=== PATIENT | female | born 1985 | race Caucasian/White ===

== ENCOUNTER 2022-10-13 08:31 | Emergency (ER) | payer MEDICAID, SELFPAY ==
[2022-10-13 08:32] VITALS: BP 133/82; PULSE 73; RESP 14; TEMP 36.3; O2SAT 100; BMI 36.3
--- NOTE | 2022-10-13 09:08 | EX.ED.DYSGE1 ---
HPI History of Present Illness Chief Complaint: General Illness Informant: patient Narrative Narrative: Presents to ED by private vehicle awaken with dizziness and nausea with room spinning. States yesterday started her menstrual cramps with heavy bleeding. This is the normal timeframe however heavier than normal. Also while in the ED states she had feelings of loose stools. She did report taking a liver cleanse medication last evening. This was the first time. No recent antibiotics. No fevers. No headaches. No history of vertigo in the past. Denies any recent sinus congestion any tinnitus. Eyes any allergies to medications. Prior similar symptoms: No PFSH PFSH Medical History no medical history Home Medications cephalexin 500 mg capsule 500 mg PO Q12 #14 CAPSULES 10/13/22 [Rx Last Taken Unknown] metoclopramide HCl 10 mg tablet (Reglan) 10 mg PO Q8H PRN PRN dizziness or vertigo #20 tabs 10/13/22 [Rx Last Taken Unknown] Allergy/AdvReac Type Severity Reaction Status Date / Time No Known Allergies Allergy Verified 10/13/22 08:35 Social History Smoking Status: Unknown if ever smoked ROS ROS ED Constitutional Constitutional ED: Denies chills, fever(s) or sweats Eyes Eyes: Denies change in vision ENT ENT ED: Denies dysphagia or sore throat Cardiovascular Cardiovascular: Denies chest pain, leg edema, palpitations or racing heartbeat Respiratory/Chest Respiratory/Chest: Denies cough, dyspnea or dyspnea on exertion Gastrointestinal Gastrointestinal: Denies abdominal pain, diarrhea, nausea or vomiting Genitourinary Genitourinary ED: Reports other Details: Menorrhagia ; Denies dysuria, hematuria or urinary frequency Musculoskeletal Musculoskeletal: Denies back pain, extremity pain or neck pain Integumentary Denies rash or wounds Neurologic Neurologic: Reports other Details: Vertigo ; Denies headache(s), paresthesias or weakness EXAM Physical Exam Const Vital Signs: 10/13/22 08:32 10/13/22 08:44 10/13/22 10:33 Temperature 97.4 F L Temperature Source Temporal Pulse Rate 73 65 Respiratory Rate 14 Respiratory Effort Normal Blood Pressure 133/82 H 120/72 Blood Pressure Mean 99 88 Pulse Ox 100 97 Oxygen Delivery Method Room Air Room Air 10/13/22 11:05 Temperature Temperature Source Pulse Rate Respiratory Rate Respiratory Effort Blood Pressure 120/72 Blood Pressure Mean Pulse Ox Oxygen Delivery Method Positive well nourished and well developed General Appearance ED: well developed and NAD HEENT Reports TM's clear and moist mucous membranes normocephalic and atraumatic Tympanic Membrane ED: Yes TM's clear Eyes PERRL, EOMs intact bilaterally and conjunctivae normal Eyes Narrative: Horizontal nystagmus bilaterally with extreme deviation right or left. General Eye ED: Yes normal appearance of both eyes Neck no lymphadenopathy and supple General: Negative for tenderness Chest Wall Chest: Negative for tenderness Resp normal respiratory effort and normal air movement Effort and Inspection: symmetric chest movement; Negative for respiratory distress Cardio regular rate, regular rhythm and no murmurs Peripheral Pulses: pulses 2+ throughout GI normal to inspection, nondistended, normoactive bowel sounds and non-tender GI Narrative: Negative Anderson's McBurney's tenderness. Palpation: Negative for guarding or rebound tenderness present Back/Spine no CVA tenderness and no thoracic nor lumbar tenderness Extremity normal to inspection General Extremety ED: Negative for edema or tenderness General Extremity: Negative for edema Neuro oriented x3, CN's II-XII intact bilaterally and no sensory deficits noted Neuro Narrative: NIH of 0. Sensorium / Orientation: awake and alert Skin no rashes or lesions noted and no wounds MDM MDM MDM Narrative Medical decision making narrative: Patient horizontal nystagmus NIH of 0 no other focal deficits. Presenting with menorrhagia suprapubic tenderness noted reported urine frequency. Differential peripheral vertigo, less likely central vertigo with horizontal nystagmus and no focal deficits. Menorrhagia with urine frequency. Discussed rule out ectopic versus UTI. Labs were obtained white count 7.4 hemoglobin 14. Electrolytes are all normal. Urine did signs of infection. test was. Reevaluation symptoms are improved she is ambulating with no return of symptoms. She started on Keflex for antibiotics. She is given prescription of Reglan also help with symptoms. Return precaution discussed. Otherwise outpatient follow-up. All questions were answered. Lab Data Attestation: I reviewed the patient's lab results. Labs: Laboratory Results - last 24 hr 10/13/22 10/13/22 10/13/22 08:15 08:15 10:15 WBC 7.4 RBC 5.05 Hgb 14.5 Hct 44.0 MCV 87.1 MCH 28.7 MCHC 33.0 RDW Std Deviation 39.5 RDW Coeff of Kota 12.3 Plt Count 252 MPV 11.2 Immature Gran % (Auto) 0.300 Neut % (Auto) 58.7 Lymph % (Auto) 27.8 [place] % (Auto) 9.8 Eos % (Auto) 2.7 Baso % (Auto) 0.7 Absolute Neuts (auto) 4.3 Absolute Lymphs (auto) 2.05 Nucleated RBC % 0 Sodium 141 Potassium 3.6 Chloride 108 H Carbon Dioxide 26.0 Anion Gap 7 BUN 11 Creatinine 0.80 Estim Creat Clear Calc 93.63 Est GFR (MDRD) Af Amer 103 Est GFR (MDRD) Non-Af 85 BUN/Creatinine Ratio 13.7 Glucose 129 H Calcium 8.9 Urine Color Red Urine Clarity Sl. Cloudy Urine pH 7.0 Ur Specific Berkley 1.005 Urine Protein 100 H Urine Glucose (UA) Normal Urine Ketones Negative Urine Occult Blood 250 H Urine Nitrite Negative Urine Bilirubin Negative Urine Urobilinogen Normal Ur Leukocyte Esterase 100 H Urine RBC 25-50 SEEN Urine WBC 10-25 SEEN Ur Squamous Epith Cells 0-5 SEEN Urine Bacteria 1+ Urine Mucus 0 SEEN Urine Test Negative Discharge Plan Triage Chief Complaint: General Illness ED Provider: Gagandeep Trinidad Dx/Rx/DC Orders Clinical Impression: UTI (urinary tract infection), Vertigo, Menorrhagia Instructions: UTIs Understanding, Vertigo Medicine Tx, ED Vertigo, Unspecified Prescriptions: New cephalexin [cephalexin] 500 mg capsule 500 mg PO Q12 Qty: 14 0RF metoclopramide HCl [Reglan] 10 mg tablet 10 mg PO Q8H PRN PRN (Reason: dizziness or vertigo) Qty: 20 0RF Primary Care Provider: Care Physician,No Primary Referrals: Grace Singh [Non-Staff] - 1-2 Weeks Care Physician,No Primary [Primary Care Provider] - Activity Restrictions/Additional Instructions: Urine with infection. Take antibiotic as prescribed. Reglan as needed for dizziness. Monitor symptoms. Follow-up as an outpatient. Return if worsening symptoms. Disposition Disposition: Home, Self Care Discharge Date/Time: 10/13/22 11:05
[2022-10-13] MEDS: Metoclopramide 10 MG/2 ML Vial 5 MG IV (09:18)
[2022-10-13 09:26] LABS: Absolute Lymphocyte Count 2.05 X10^3/uL (0.83-4.51); Absolute Neutrophil Count 4.3 X10^3/uL (2.0-7.7); Basophil# 0.05 X10^3/uL; Basophil% 0.7 % (0-1); Eosinophils% 2.7 % (0-5); Hemoglobin 14.5 g/dL (12.0-15.0); Lymphocyte # 2.05 X10^3/ul (0.83-4.51); Lymphocyte % 27.8 % (19-41); Mean Corpuscular Hgb 28.7 pg (27.0-32.0); Mean Corpuscular Volume 87.1 fL (81-99); Mean Platelet Vol. 11.2 fl (6.2-12.0); Monocyte# 0.72 X10^3/uL; Monocyte% 9.8 % (0-10); NRBC Flagged by Analyzer 0 % (0-5); Neutrophil # 4.33 X10^3/uL (2.7-7.7); Neutrophil % 58.7 % (47-70); Platelet Count 252 K/mm3 (150-450); RBC Distribution Width CV 12.3 % (11.6-14.6); RBC Distribution Width SD 39.5 fl (35.1-43.9); Red Blood Count 5.05 M/mm3 (4.2-5.4); White Blood Count 7.4 K/mm3 (4.4-11.0)
[2022-10-13 09:40] LABS: Anion Gap 7 (5-15); BUN 11 mg/dL (7-18); BUN/Creat Ratio 13.7 RATIO (10-20); Calcium,Total 8.9 mg/dL (8.5-10.1); Chloride 108 mmol/L (98-107); EST Glomerular Filtration Rate 85 mL/min (>60); Est Glom Filt Rate - Afr Amer 103 mL/min (>60); Estimated Creatinine Clearance 93.63 ml/min; Glucose 129 mg/dL (74-106); Potassium 3.6 mmol/L (3.5-5.1); Sodium Level 141 mmol/L (136-145)
[2022-10-13 10:24] LABS: Mucous, Urine 0 SEEN /hpf (<or=2+)
[2022-10-13 10:30] LABS: Color, Urine Red (Yellow); Glucose, Dipstick Normal (Normal); Ketone-Dipstick Negative (Negative); Leukocyte Esterase-Dipstick 100 /ul (Negative); Nitrite-Dipstick Negative (Negative); Occult Blood-Urine 250 /ul (Negative); Protein-Dipstick 100 mg/dl (Negative); Specific Gravity, Urine 1.005 (1.002-1.030); Urine Bilirubin Dipstick Negative (Negative); Urine Clarity Sl. Cloudy (Clear); Urine Urobilinogen Normal (Normal)
[2022-10-13 10:33] VITALS: BP 120/72; PULSE 65; O2SAT 97
[2022-10-13 10:35] LABS: Red Blood Cells-Urine 25-50 SEEN /hpf (0-5); White Blood Cells 10-25 SEEN /hpf (0-5)
[2022-10-13 10:36] LABS: Bacteria 1+ /hpf (None Seen); Internal QC Validated? YES +Cl - CLEAR BKGD; Pregnancy, Urine Negative Negative; Squamous Epithelial Cells - UA 0-5 SEEN /hpf (5-10)
[2022-10-13] MEDS: Cephalexin 250 MG Capsule 500 MG PO (11:00)
--- NOTE | 2022-10-13 11:00 | CM.ED ---
SW Note Referral Source: Case Find Referral Reason: No Primary Care Physician (PCP) SW reviewed chart and noted that patient has no PCP. SW provided patient with list of [facility] and [facility] Physician List for reference. SW also provided patient with handout ?Where to go When?. No other issues or concerns voiced at this time. SW remains available for any additional needs. Plan: Provided patient with PCP information Ronna JAIMES
[2022-10-13 11:05] VITALS: BP 120/72
== END 2022-10-13 11:05 | disposition home or self-care (01) ==
PROVIDERS: Emergency Provider Emergency Medicine; Visit Provider Emergency Medicine
DX: N39.0 Urinary tract infection, site not specified (principal); N92.0 Excessive and frequent menstruation with regular cycle; R42 Dizziness and giddiness
CPT/HCPCS: 80048; 81001; 81025; 85025; 87086; 87088; 96361; 96374; 99285; J7040

== ENCOUNTER → 2022-10-24 | Outpatient (CLI) | payer MEDICAID, SELFPAY ==
[2022-10-25 22:07] LABS: Chlamydia By Nucleic Acid AMP Negative (Negative)
[2022-10-25 22:27] LABS: Gonococcus By Nucleic Acid AMP Negative (Negative)
[2022-10-29 22:17] LABS: HPV APTIMA, High Risk Negative (Negative)
== END | disposition home or self-care (01) ==
LOC: LAB 10:56
PROVIDERS: Referring Provider Nurse Practitioner Women's Health; Visit Provider Nurse Practitioner Women's Health
DX: N92.1 Excessive and frequent menstruation with irregular cycle (principal); N89.8 Other specified noninflammatory disorders of vagina; Z12.4 Encounter for screening for malignant neoplasm of cervix
CPT/HCPCS: 87070; 87205; 87491; 87591; 87624; 88175; G0145

== ENCOUNTER → 2022-10-25 | Outpatient (CLI) | payer MEDICAID, SELFPAY ==
--- NOTE | 2022-10-25 16:15 | US_ITS ---
STUDY: ULTRASOUND OF THE FEMALE PELVIS - COMPLETE REASON FOR EXAM: Female, 37 years old. Bleeding LMP: 10/17/2022. TECHNIQUE: Transabdominal and Transvaginal TECHNICAL QUALITY: Adequate. COMPARISON: None. FINDINGS: The uterus is anteverted and is in a midline position. The uterus measures 9.2 cm x 6.8 cm x 4.8 cm. There is a Nabothian cyst of the cervix. The endometrium measures 10 mm in thickness, and is . There is no demonstrated endometrial mass. There is no demonstrated myometrial mass. I.U.D. - The patient does not have an I.U.D. The right ovary is visualized. The right ovary measures 2.9 cm x 1.3 cm x 1.7 cm. There is no right ovarian cyst or ovarian mass. There is no visualized right adnexal mass or complex lesion. There is normal arterial and normal venous vascularity. The left ovary is visualized. The left ovary measures 3.5 cm x 3.2 cm x 2.4 cm. There is a 2.1 cm x 1.8 cm x 1.8 cm left ovarian cyst. There is no visualized left adnexal mass or complex lesion. There is normal arterial and normal venous vascularity. There is no fluid in the cul-de-sac. The pre void volume of the bladder was 172 ml. US/Pelvic (Non ) IMPRESSION: 2.1 cm x 1.5 x 1.8 solid left ovarian cyst. Electronically Signed: Nelson Cruz MD at 15:31 EST ,
--- NOTE | 2022-10-25 16:15 | US_ITS ---
STUDY: ULTRASOUND OF THE FEMALE PELVIS - COMPLETE REASON FOR EXAM: Female, 37 years old. Bleeding LMP: 10/17/2022. TECHNIQUE: Transabdominal and Transvaginal TECHNICAL QUALITY: Adequate. COMPARISON: None. FINDINGS: The uterus is anteverted and is in a midline position. The uterus measures 9.2 cm x 6.8 cm x 4.8 cm. There is a Nabothian cyst of the cervix. The endometrium measures 10 mm in thickness, and is . There is no demonstrated endometrial mass. There is no demonstrated myometrial mass. I.U.D. - The patient does not have an I.U.D. The right ovary is visualized. The right ovary measures 2.9 cm x 1.3 cm x 1.7 cm. There is no right ovarian cyst or ovarian mass. There is no visualized right adnexal mass or complex lesion. There is normal arterial and normal venous vascularity. The left ovary is visualized. The left ovary measures 3.5 cm x 3.2 cm x 2.4 cm. There is a 2.1 cm x 1.8 cm x 1.8 cm left ovarian cyst. There is no visualized left adnexal mass or complex lesion. There is normal arterial and normal venous vascularity. There is no fluid in the cul-de-sac. The pre void volume of the bladder was 172 ml. US/Transvaginal Non- IMPRESSION: 2.1 cm x 1.5 x 1.8 solid left ovarian cyst. Electronically Signed: Nelson Cruz MD at 15:31 EST ,
== END | disposition home or self-care (01) ==
LOC: US 16:13
PROVIDERS: Referring Provider Nurse Practitioner Women's Health; Visit Provider Nurse Practitioner Women's Health
DX: N92.1 Excessive and frequent menstruation with irregular cycle (principal)
CPT/HCPCS: 76830; 76856

== ENCOUNTER → 2022-10-27 | Outpatient (CLI) | payer MEDICAID, SELFPAY ==
[2022-10-27 12:37] LABS: Vitamin D,25 Hydroxy 22.5 ng/mL
[2022-10-27 12:45] LABS: Hemoglobin A1c 6.1 % (3.8-5.6)
[2022-10-27 12:50] LABS: AST(SGOT) 22 U/L (15-37); Alanine Aminotransfer ALT/SGPT 49 U/L (13-56); Albumin, Serum 3.6 g/dL (3.2-5.0); Alkaline Phosphatase 70 U/L (45-117); Bilirubin, Direct 0.14 mg/dL (0.00-0.30); Cholesterol 149 mg/dL (200); Globulin 3.2 g/dL (2.2-4.2); High Density Lipoprotein 36 mg/dL; Protein, Total 6.8 g/dL (6.4-8.2); Thyroid Stim Hormone (TSH) 1.47 uIU/mL (0.358-3.74); Triglycerides 152 mg/dL; Very Low Density Lipoprotein 30 mg/dL (5-40)
[2022-10-31 19:27] LABS: Lamotrigine (Lamictal) Level < 1.0 ug/mL (2.0-20.0)
== END | disposition home or self-care (01) ==
LOC: BIMLAB 11:07
PROVIDERS: PCP Internal Medicine; Referring Provider Internal Medicine; Visit Provider Internal Medicine
DX: N92.1 Excessive and frequent menstruation with irregular cycle (principal); F32.1 Major depressive disorder, single episode, moderate; R73.09 Other abnormal glucose; K76.0 Fatty (change of) liver, not elsewhere classified
CPT/HCPCS: 36415; 80061; 80076; 82306; 82542; 83036; 84443

== ENCOUNTER → 2022-12-20 | Outpatient (CLI) | payer MEDICAID, SELFPAY | END | disposition home or self-care (01) | LOC: LABSPEC 16:41 | PROVIDERS: PCP Internal Medicine; Referring Provider Nurse Practitioner Women's Health; Visit Provider Nurse Practitioner Women's Health | DX: N89.8 Other specified noninflammatory disorders of vagina (principal) | CPT/HCPCS: 87070; 87205 ==

== ENCOUNTER → 2023-03-09 | Outpatient (CLI) | payer MEDICAID, SELFPAY ==
[2023-03-09 14:23] LABS: Bacteria 0 SEEN /hpf (None Seen); Mucous, Urine 0 SEEN /hpf (<or=2+); Red Blood Cells-Urine 0 SEEN /hpf (0-5); Squamous Epithelial Cells - UA 0 SEEN /hpf (5-10); White Blood Cells 0 SEEN /hpf (0-5)
[2023-03-09 15:45] LABS: Absolute Lymphocyte Count 2.08 X10^3/uL (0.83-4.51); Absolute Neutrophil Count 5.8 X10^3/uL (2.0-7.7); Basophil# 0.03 X10^3/uL; Basophil% 0.3 % (0-1); Eosinophil# 0.29 X10^3/uL; Eosinophils% 3.3 % (0-5); Hematocrit 42.7 % (37-47); Hemoglobin 13.9 g/dL (12.0-15.0); Lymphocyte # 2.08 X10^3/ul (0.83-4.51); Lymphocyte % 23.5 % (19-41); Mean Corp Hgb Conc 32.6 g/dL (32-36); Mean Corpuscular Hgb 28.4 pg (27.0-32.0); Mean Corpuscular Volume 87.3 fL (81-99); Mean Platelet Vol. 10.8 fl (6.2-12.0); Monocyte# 0.63 X10^3/uL; Monocyte% 7.1 % (0-10); NRBC Flagged by Analyzer 0 % (0-5); Neutrophil # 5.79 X10^3/uL (2.7-7.7); Neutrophil % 65.3 % (47-70); Platelet Count 220 K/mm3 (150-450); RBC Distribution Width CV 12.6 % (11.6-14.6); Red Blood Count 4.89 M/mm3 (4.2-5.4); White Blood Count 8.9 K/mm3 (4.4-11.0)
[2023-03-09 16:21] LABS: ALB/GLOB Ratio 1.1 RATIO (0.9-2.4); AST(SGOT) 26 U/L (15-37); Alanine Aminotransfer ALT/SGPT 54 U/L (13-56); Albumin, Serum 3.7 g/dL (3.2-5.0); Alkaline Phosphatase 74 U/L (45-117); Anion Gap 4 (5-15); BUN 10 mg/dL (7-18); BUN/Creat Ratio 12.5 RATIO (10-20); Calcium,Total 8.8 mg/dL (8.5-10.1); Chloride 106 mmol/L (98-107); EST Glomerular Filtration Rate 86 mL/min (>60); Est Glom Filt Rate - Afr Amer 104 mL/min (>60); Globulin 3.4 g/dL (2.2-4.2); Glucose 142 mg/dL (74-106); Lipase 32 U/L (13-75); Potassium 4.1 mmol/L (3.5-5.1); Protein, Total 7.1 g/dL (6.4-8.2); Sodium Level 138 mmol/L (136-145)
[2023-03-09 16:55] LABS: Color, Urine Yellow (Yellow); Glucose, Dipstick Normal (Normal); Ketone-Dipstick Negative (Negative); Leukocyte Esterase-Dipstick Negative /ul (Negative); Nitrite-Dipstick Negative (Negative); Occult Blood-Urine Negative /ul (Negative); Protein-Dipstick Negative (Negative); Urine Bilirubin Dipstick Negative (Negative); Urine Clarity Clear (Clear); Urine Urobilinogen Normal (Normal); Urine pH 6.5 (5.0 - 8.0)
[2023-03-09 17:02] LABS: Internal QC Validated? YES +Cl - CLEAR BKGD; Pregnancy, Urine Negative Negative
== END | disposition home or self-care (01) ==
LOC: BIMLAB 14:15
PROVIDERS: PCP Internal Medicine; Referring Provider Internal Medicine; Visit Provider Internal Medicine
DX: K62.5 Hemorrhage of anus and rectum (principal); K59.09 Other constipation; R82.90 Unspecified abnormal findings in urine
CPT/HCPCS: 36415; 80053; 81001; 81025; 83690; 85025

== ENCOUNTER 2023-03-12 15:51 | Emergency (ER) | payer MEDICAID, SELFPAY ==
[2023-03-12 15:51] VITALS: BP 138/93; PULSE 84; RESP 16; TEMP 36.6; O2SAT 98; BMI 43.6
--- NOTE | 2023-03-12 16:13 | EDS_ITS ---
<Statement entered by Quentin Jorgensen MD - 03/12/23 21:05> Pt seen & evaluated w/ROSEANNE. I personally interviewed & exam the pt. I was involved in all aspects of pt's orders, interpretation of results & treatment Attending note was completed in the MDM portion of the chart. HPI <PUNEET Bolton - Last Filed: 03/12/23 17:15> History of Present Illness Chief Complaint: GI Bleed Narrative Narrative: Patient is a 37-year-old female history of obesity, anxiety who presents to the emergency department with 5 days of intermittent bleeding in her stool. Patient did see her PCP she did have some laboratory test completed on 03/09/2023, these were mostly unremarkable. Patient states that she did have some red beats earlier today. She is been trying to change her diet. Patient had a full bowel movement, she states that the entire bowel movement was red. She denies any clots. She denies any severe abdominal pain. Patient that she has intermittent cramping from time to time. Denies any dizziness, chest pain, shortness of breath. PFS <PUNEET Bolton - Last Filed: 03/12/23 17:15> [facility] Medical History (Updated 03/12/23 @ 17:15 by PUNEET Bolton) Anxiety Depression Fatty liver Hx: UTI (urinary tract infection) Liver disease Home Medications fluoxetine 20 mg capsule 20 mg PO DAILY #30 caps 10/27/22 [Rx Last Taken Unknown] inulin 2 gram chewable tablet (Fiber Gummies) g PO 10/27/22 [History Last Taken Unknown] docusate sodium 100 mg capsule 100 mg PO BID PRN constipation #30 caps 12/08/22 [Rx Last Taken Unknown] lamotrigine 25 mg tablet 100 mg PO DAILY 12/08/22 [History Last Taken Unknown] psyllium husk 3.4 gram/5.4 gram oral powder (Metamucil) 1 tbsp PO DAILY #660 grams 12/08/22 [Rx Last Taken Unknown] clotrimazole-betamethasone 1 %-0.05 % topical cream 1 applic topical BID 2 weeks #45 grams 12/20/22 [Rx Last Taken Unknown] omeprazole 20 mg capsule,delayed release 20 mg PO DAILY #30 caps 03/09/23 [Rx Last Taken Unknown] Allergy/AdvReac Type Severity Reaction Status Date / Time No Known Allergies Allergy Verified 03/12/23 15:53 Family History Father Anxiety Depression Grandfather Cancer unknown Surgical History No pertinent past surgical history Social History adopted: No household members: significant other and children housing: house number of children: 1 current occupational status: employed current occupation: [employer] Smoking Status: Never smoker Electronic Cigarette Use: not used alcohol intake: current alcohol intake frequency: holidays/special occasions only substance use type: does not use seatbelt use: sometimes do you feel safe at home: Yes additional social history: 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 Positive blood in stool : Negative for any urinary frequency, dysuria, retention, blood in urine Muscle skeletal: Negative for any muscle joint pain, stiffness, myalgias, arthralgias, neck pain, back pain Neurological: Negative for any headache, syncope, numbness or tingling, dizziness Skin: Negative for any rashes, lumps, itching, abrasions, lacerations Psychiatric: Negative for any depression, anxiety, stress, suicidal ideation, homicidal ideation Hematologic: Negative for any easy bruising, excessive bruising, easy bleeding Allergies: Negative for any eczema, hives, rash EXAM <PUNEET Bolton - Last Filed: 03/12/23 17:15> Physical Exam Narrative Exam Narrative: Vital signs reviewed. HEET: Head normocephalic atraumatic, TMs clear bilaterally. Posterior pharynx is clear, moist mucous membranes. Nares clear bilaterally. Neck: Supple with no lymphadenopathy or tenderness. No signs of meningismus, negative jolt sign. Cardiac: Regular rate and rhythm no murmurs gallops or rubs, equal peripheral pulses bilaterally. Respiratory: Lungs clear to auscultation bilaterally. No chest tenderness. Abdomen: Soft, nontender, nondistended. No abdominal bruit or pulsatile masses. No hepatosplenomegaly Extremities: No peripheral edema, no signs of gross trauma or deformity. Active full range of motion of all extremities. Neuro: Cranial nerves II through XII intact, no focal neurological deficits. Skin: Clean dry and intact with no rash, purpura, petechiae, vesicles or pustules. Backs/flank: No CVA tenderness, no midline spinal tenderness, no deformity. Psych: Normal mood and affect. No SI, HI or acute psychosis. Rectal: Rectal exam was completed with female nurse Yoana. There is no external hemorrhoids. There is no evidence of bleeding or erythema. There is minimal to no stool in the rectal vault. No evidence of dark tarry stool, bleeding. No masses felt. Const Vital Signs: 03/12/23 15:51 03/12/23 17:15 Temperature 98 F Temperature Source Temporal Pulse Rate 84 67 Respiratory Rate 16 15 Blood Pressure 138/93 H 129/74 H Blood Pressure Mean 108 Pulse Ox 98 98 Oxygen Delivery Method Room Air Positive well nourished, well developed and obese General Appearance ED: well developed Nutritional Appearance: obese <Dr. Quentin Jorgensen MD - Last Filed: 03/12/23 20:57> Physical Exam Const Vital Signs: 03/12/23 15:51 03/12/23 17:15 Temperature 98 F Temperature Source Temporal Pulse Rate 84 67 Respiratory Rate 16 15 Blood Pressure 138/93 H 129/74 H Blood Pressure Mean 108 Pulse Ox 98 98 Oxygen Delivery Method Room Air MDM <PUNEET Bolton - Last Filed: 03/12/23 17:15> [facility] Lab Data Labs: Laboratory Results - last 24 hr 03/12/23 16:22 WBC 8.2 RBC 4.63 Hgb 13.3 Hct 40.6 MCV 87.7 MCH 28.7 MCHC 32.8 RDW Std Deviation 40.4 RDW Coeff of Kota 12.7 Plt Count 220 MPV 10.7 Immature Gran % (Auto) 0.600 Neut % (Auto) 60.8 Lymph % (Auto) 25.3 [place]cdonald % (Auto) 9.6 Eos % (Auto) 3.3 Baso % (Auto) 0.4 Absolute Neuts (auto) 5.0 Absolute Lymphs (auto) 2.07 Nucleated RBC % 0 Sodium 138 Potassium 3.7 Chloride 107 Carbon Dioxide 26.0 Anion Gap 5 BUN 14 Creatinine 0.93 Estim Creat Clear Calc 80.54 Est GFR (MDRD) Af Amer 87 Est GFR (MDRD) Non-Af 72 BUN/Creatinine Ratio 15.1 Glucose 136 H Calcium 8.7 Total Bilirubin 0.50 AST 24 ALT 48 Alkaline Phosphatase 71 Total Protein 6.7 Albumin 3.5 Globulin 3.2 Albumin/Globulin Ratio 1.1 Lipase 44 Treatment and Re-Evaluation :: Patient appears generally well, patient appears nontoxic, vital signs are stable. Patient presents to the emergency department concern of blood in his stool. Physical examination was grossly unremarkable. Patient had no significant tenderness to her abdomen. Patient is currently trying to get a colonoscopy set up. Rectal exam was unremarkable. Patient will see some basic laboratory values as well as a fecal occult stool. Patient is stable. Patient appears generally well on reassessment. Patient did receive some basic laboratory values, CBC was grossly unremarkable, patient's hemoglobin is stable at 13.3. Patient's chemistries were unremarkable, no elevation in liver enzymes . Patient rectal exam was unremarkable, the fecal occult stool was positive for microscopic blood. I spoke with the patient at length, I do believe the patient is pursuing the right avenue with seeing a GI specialist and getting a colonoscopy. She will follow-up outpatient. At this time, she is stable for discharge. She was given strict return precautions to return for worsening bleeding, hemorrhage, dizziness. She is happy with the plan of care, all questions answered. Patient stable for discharge. A CT scan was considered however patient has no pain to her abdomen, no pain in the left lower or right lower abdomen, no pain to her epigastric area. This is not appropriate at this time. <Dr. Quentin Jorgensen MD - Last Filed: 03/12/23 20:57> [facility] Narrative Medical decision making narrative: I have personally performed a face to face assessment of the patient and have reviewed the ROSEANNE Note. I performed a substantive portion of the visit including all aspects of the following. My roa findings include: History is remarkable for blood in her stool. She is not on an anticoagulant. She is on omeprazole. She has recently eaten beets. She denies black or sticky stool. She has not had any Kaopectate or Pepto-Bismol in the last 3 days. She denies orthostatic symptoms. She denies cardiac or respiratory symptoms. Exam is unremarkable. Blood pressure slightly elevated. BMI is 43.6. HEENT exam is unremarkable. Lungs are clear auscultation. Heart is regular. Abdomen is soft nontender. There is no CVA tenderness noted. Rectal exam was not repeated. Medical Decision Making Will send stool for Hemoccult CBC to assess 8. BMP to assess BUN to creatinine ratio as well as electrolytes. Because she reported intolerance to greasy and fried foods and had sausage this morning for breakfast that made her pain worse hepatic enzymes were added as well as lipase. All of her laboratory results are unremarkable. The only abnormality was a slight elevation in glucose of 136. Other additions or changes: None Lab Data Labs: Laboratory Results - last 24 hr 03/12/23 16:22 WBC 8.2 RBC 4.63 Hgb 13.3 Hct 40.6 MCV 87.7 MCH 28.7 MCHC 32.8 RDW Std Deviation 40.4 RDW Coeff of Kota 12.7 Plt Count 220 MPV 10.7 Immature Gran % (Auto) 0.600 Neut % (Auto) 60.8 Lymph % (Auto) 25.3 Mcdonald % (Auto) 9.6 Eos % (Auto) 3.3 Baso % (Auto) 0.4 Absolute Neuts (auto) 5.0 Absolute Lymphs (auto) 2.07 Nucleated RBC % 0 Sodium 138 Potassium 3.7 Chloride 107 Carbon Dioxide 26.0 Anion Gap 5 BUN 14 Creatinine 0.93 Estim Creat Clear Calc 80.54 Est GFR (MDRD) Af Amer 87 Est GFR (MDRD) Non-Af 72 BUN/Creatinine Ratio 15.1 Glucose 136 H Calcium 8.7 Total Bilirubin 0.50 AST 24 ALT 48 Alkaline Phosphatase 71 Total Protein 6.7 Albumin 3.5 Globulin 3.2 Albumin/Globulin Ratio 1.1 Lipase 44 Discharge Plan Triage Chief Complaint: GI Bleed ED Midlevel Provider: Suraj Gallegos ED Provider: Quentin Jorgensen Dx/Rx/DC Orders Clinical Impression: Rectal bleed, Constipation Prescriptions: No Action lamotrigine 25 mg tablet 100 mg PO DAILY Fiber Gummies 2 gram tablet,chewable PO fluoxetine 20 mg capsule 20 mg PO DAILY Qty: 30 2RF clotrimazole-betamethasone 1-0.05 % cream 1 applic topical BID 14 Days Qty: 45 1RF Metamucil 3.4 gram/5.4 gram powder 1 tbsp PO DAILY Qty: 660 0RF Rx Instructions: mix into at least 8 oz of water or juice before administering docusate sodium 100 mg capsule 100 mg PO BID PRN (Reason: constipation) Qty: 30 0RF omeprazole 20 mg capsule,delayed release(DR/EC) 20 mg PO DAILY Qty: 30 0RF Primary Care Provider: Bina Dorsey Referrals: Bina Dorsey MD [Primary Care Provider] - Hiren Beyer DO [Med Staff - Active Staff] - Activity Restrictions/Additional Instructions: Please take MiraLAX 3 times a day, follow-up with a GI specialist to have a colonoscopy. Disposition Disposition: Home, Self Care
[2023-03-12 16:32] LABS: Absolute Lymphocyte Count 2.07 X10^3/uL (0.83-4.51); Basophil# 0.03 X10^3/uL; Basophil% 0.4 % (0-1); Eosinophil# 0.27 X10^3/uL; Eosinophils% 3.3 % (0-5); Hematocrit 40.6 % (37-47); Hemoglobin 13.3 g/dL (12.0-15.0); Lymphocyte # 2.07 X10^3/ul (0.83-4.51); Lymphocyte % 25.3 % (19-41); Mean Corp Hgb Conc 32.8 g/dL (32-36); Mean Corpuscular Hgb 28.7 pg (27.0-32.0); Mean Corpuscular Volume 87.7 fL (81-99); Mean Platelet Vol. 10.7 fl (6.2-12.0); Monocyte# 0.79 X10^3/uL; Monocyte% 9.6 % (0-10); NRBC Flagged by Analyzer 0 % (0-5); Neutrophil # 4.98 X10^3/uL (2.7-7.7); Neutrophil % 60.8 % (47-70); Platelet Count 220 K/mm3 (150-450); RBC Distribution Width CV 12.7 % (11.6-14.6); RBC Distribution Width SD 40.4 fl (35.1-43.9); Red Blood Count 4.63 M/mm3 (4.2-5.4); White Blood Count 8.2 K/mm3 (4.4-11.0)
[2023-03-12 16:50] LABS: ALB/GLOB Ratio 1.1 RATIO (0.9-2.4); AST(SGOT) 24 U/L (15-37); Alanine Aminotransfer ALT/SGPT 48 U/L (13-56); Albumin, Serum 3.5 g/dL (3.2-5.0); Alkaline Phosphatase 71 U/L (45-117); Anion Gap 5 (5-15); BUN 14 mg/dL (7-18); BUN/Creat Ratio 15.1 RATIO (10-20); Calcium,Total 8.7 mg/dL (8.5-10.1); Chloride 107 mmol/L (98-107); Creatinine, Serum 0.93 mg/dL (0.55-1.02); EST Glomerular Filtration Rate 72 mL/min (>60); Est Glom Filt Rate - Afr Amer 87 mL/min (>60); Estimated Creatinine Clearance 80.54 ml/min; Globulin 3.2 g/dL (2.2-4.2); Glucose 136 mg/dL (74-106); Lipase 44 U/L (13-75); Potassium 3.7 mmol/L (3.5-5.1); Protein, Total 6.7 g/dL (6.4-8.2); Sodium Level 138 mmol/L (136-145)
[2023-03-12 17:15] VITALS: BP 129/74; PULSE 67; RESP 15; O2SAT 98
== END 2023-03-12 17:22 | disposition home or self-care (01) ==
PROVIDERS: Nurse Practitioner; Emergency Provider Emergency Medicine; PCP Internal Medicine; Visit Provider Emergency Medicine
DX: K62.5 Hemorrhage of anus and rectum (principal); Z68.41 Body mass index [BMI] 40.0-44.9, adult; K59.00 Constipation, unspecified; K76.9 Liver disease, unspecified; E66.9 Obesity, unspecified
CPT/HCPCS: 80053; 82274; 83690; 85025; 99283; A4216

== ENCOUNTER 2023-03-13 23:04 | Emergency (ER) | payer MEDICAID, SELFPAY ==
[2023-03-13 23:04] VITALS: BP 138/90; PULSE 135; RESP 18; TEMP 37; O2SAT 99; BMI 43.2
--- NOTE | 2023-03-14 00:08 | CT_ITS ---
EXAM: CT ANGIOGRAPHY ABDOMEN AND PELVIS WITHOUT AND WITH INTRAVENOUS CONTRAST CLINICAL INDICATION: GI bleed TECHNIQUE: Helically acquired angiography images were obtained of the abdomen and pelvis without and with intravenous contrast. This CT exam was performed using one or more of the following dose reduction techniques: automated exposure control, adjustment of the mA and/or kV according to patient size, and/or use of iterative reconstruction technique. MIP reconstructed images were created and reviewed. CONTRAST: 100 cc of Isovue-370 IV. RADIATION DOSE: CTDIvol = 29.90 mGy, DLP = 1371.10 mGy-cm COMPARISON: No relevant prior studies available. FINDINGS: VASCULATURE: AORTA: No acute findings. Normal caliber abdominal aorta. No dissection. CELIAC TRUNK AND MESENTERIC ARTERIES: No acute findings. No occlusion or significant stenosis. No dissection. RENAL ARTERIES: No acute findings. No occlusion or significant stenosis. No dissection. ILIAC ARTERIES: No acute findings. No occlusion or significant stenosis. No dissection. LOWER THORAX: Unremarkable. Lung bases are clear. No cardiomegaly. No significant pericardial effusion. ABDOMEN: LIVER: There is diffuse low-attenuation of the liver. GALLBLADDER AND BILE DUCTS: Unremarkable. No calcified gallstones. No gallbladder distention or wall edema. No intra- or extrahepatic biliary ductal dilation. PANCREAS: Unremarkable. No focal cystic or solid mass. SPLEEN: Unremarkable. Normal size without focal cystic or solid mass. ADRENALS: Unremarkable. No nodules. KIDNEYS AND URETERS: Unremarkable. Normal renal size and position. No hydronephrosis. STOMACH AND BOWEL: Unremarkable. No stomach or bowel distention. No focal inflammatory change. PELVIS: APPENDIX: No evidence of acute appendicitis. BLADDER: Unremarkable. REPRODUCTIVE: Unremarkable as visualized. No mass. ABDOMEN and PELVIS: INTRAPERITONEAL SPACE: Unremarkable. No ascites or other fluid collection. No free air. BONES/JOINTS: Unremarkable. No suspicious lytic or blastic abnormality. SOFT TISSUES: Unremarkable. No discrete abdominal or pelvic wall hernia. LYMPH NODES: Unremarkable. No enlarged lymph nodes. CT/CTA Abd/Pelvis W/WO Contrast IMPRESSION: 1. Fatty liver. 2. No GI bleeding identified. Electronically Signed: Jaspal Mcnamara MD at 1:44 EDT ,
[2023-03-14] MEDS: 0.9% Normal Saline 1,000 ML 999 ML IV (00:23)
[2023-03-14 00:33] LABS: Absolute Lymphocyte Count 2.25 X10^3/uL (0.83-4.51); Absolute Neutrophil Count 5.5 X10^3/uL (2.0-7.7); Basophil# 0.04 X10^3/uL; Basophil% 0.4 % (0-1); Eosinophil# 0.25 X10^3/uL; Eosinophils% 2.8 % (0-5); Hematocrit 41.8 % (37-47); Hemoglobin 13.7 g/dL (12.0-15.0); Lymphocyte # 2.25 X10^3/ul (0.83-4.51); Lymphocyte % 25.1 % (19-41); Mean Corp Hgb Conc 32.8 g/dL (32-36); Mean Corpuscular Hgb 28.8 pg (27.0-32.0); Mean Platelet Vol. 10.8 fl (6.2-12.0); Monocyte# 0.91 X10^3/uL; Monocyte% 10.1 % (0-10); NRBC Flagged by Analyzer 0 % (0-5); Neutrophil # 5.48 X10^3/uL (2.7-7.7); Platelet Count 207 K/mm3 (150-450); RBC Distribution Width CV 12.6 % (11.6-14.6); RBC Distribution Width SD 40.6 fl (35.1-43.9); Red Blood Count 4.75 M/mm3 (4.2-5.4)
[2023-03-14 00:51] LABS: Internal QC Validated? YES +Cl - CLEAR BKGD; Pregnancy, Serum, hCG Quali. NEGATIVE Negative
[2023-03-14 00:54] LABS: AST(SGOT) 23 U/L (15-37); Alanine Aminotransfer ALT/SGPT 46 U/L (13-56); Albumin, Serum 3.4 g/dL (3.2-5.0); Alkaline Phosphatase 66 U/L (45-117); Anion Gap 5 (5-15); BUN 13 mg/dL (7-18); BUN/Creat Ratio 14.8 RATIO (10-20); Bilirubin, Direct 0.14 mg/dL (0.00-0.30); Calcium,Total 9.1 mg/dL (8.5-10.1); Chloride 107 mmol/L (98-107); Creatinine, Serum 0.88 mg/dL (0.55-1.02); EST Glomerular Filtration Rate 77 mL/min (>60); Est Glom Filt Rate - Afr Amer 93 mL/min (>60); Estimated Creatinine Clearance 85.12 ml/min; Globulin 3.3 g/dL (2.2-4.2); Glucose 118 mg/dL (74-106); Lipase 37 U/L (13-75); Potassium 3.8 mmol/L (3.5-5.1); Protein, Total 6.7 g/dL (6.4-8.2); Sodium Level 138 mmol/L (136-145)
[2023-03-14 01:01] LABS: Lactic Acid 0.7 mmol/L (0.4-1.9)
--- NOTE | 2023-03-14 01:15 | ED.RN ---
PT REFUSED IV PAIN MEDICATION. PT REPORTS MY PAIN IS NOT THAT BAD I DO NOT WANT ANYTHING FOR PAIN RIGHT NOW.
--- NOTE | 2023-03-14 02:02 | EDS_ITS ---
HPI History of Present Illness Chief Complaint: Abd Pain Informant: patient Narrative Narrative: Patient is a 37-year-old female with past medical history of anxiety and depression as well as constipation. She was seen in ER yesterday secondary to abdominal pain and reported blood with bowel movement. At that time labs revealed no clinically significant findings other than microscopic blood within the stool sample. Patient states she had a bowel movement today and there was blood in the toilet and this concerned her as she also has some upper abdominal pain and therefore comes in for evaluation [facility] Medical History (Updated 03/14/23 @ 02:[address] Chinedu Gusman, DO) Anxiety Depression Fatty liver Hx: UTI (urinary tract infection) Liver disease Home Medications fluoxetine 20 mg capsule 20 mg PO DAILY #30 caps 10/27/22 [Rx Last Taken Unknown] inulin 2 gram chewable tablet (Fiber Gummies) g PO 10/27/22 [History Last Taken Unknown] docusate sodium 100 mg capsule 100 mg PO BID PRN constipation #30 caps 12/08/22 [Rx Last Taken Unknown] lamotrigine 25 mg tablet 100 mg PO DAILY 12/08/22 [History Last Taken Unknown] psyllium husk 3.4 gram/5.4 gram oral powder (Metamucil) 1 tbsp PO DAILY #660 grams 12/08/22 [Rx Last Taken Unknown] clotrimazole-betamethasone 1 %-0.05 % topical cream 1 applic topical BID 2 weeks #45 grams 12/20/22 [Rx Last Taken Unknown] omeprazole 20 mg capsule,delayed release 20 mg PO DAILY #30 caps 03/09/23 [Rx Last Taken Unknown] Allergy/AdvReac Type Severity Reaction Status Date / Time No Known Allergies Allergy Verified 03/13/23 23:06 Family History Father Anxiety Depression Grandfather Cancer unknown Surgical History No pertinent past surgical history Social History adopted: No household members: significant other and children housing: house number of children: 1 current occupational status: employed 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 [employer] Smoking Status: Never smoker Electronic Cigarette Use: not used alcohol intake: current alcohol intake frequency: holidays/special occasions only substance use type: does not use seatbelt use: sometimes do you feel safe at home: Yes additional social history: Boyfriend- Ricki- Horse shoeing ROS ROS ED Constitutional Constitutional ED: Denies chills or fever(s) ENT ENT ED: Denies sore throat Cardiovascular Cardiovascular: Denies chest pain Respiratory/Chest Respiratory/Chest: Denies cough or dyspnea Gastrointestinal Gastrointestinal: Reports abdominal pain and other Details: Bright red blood with bowel movement ; Denies diarrhea, nausea or vomiting Genitourinary Genitourinary ED: Denies dysuria or hematuria Musculoskeletal Musculoskeletal: Denies myalgias Integumentary Denies rash Neurologic Neurologic: Denies headache(s) or weakness Hematologic/Lymphatic Hematologic/Lymphatic: Denies easy bleeding or easy bruising EXAM Physical Exam Const Vital Signs: 03/13/23 23:04 03/14/23 02:15 Temperature 98.6 F 100 F H Temperature Source Temporal Pulse Rate 135 H 58 L Respiratory Rate 18 17 Blood Pressure 138/90 H 117/77 Blood Pressure Mean 106 Pulse Ox 99 Oxygen Delivery Method Room Air Positive well nourished, well developed and obese General Appearance ED: well developed; Negative for pallor Nutritional Appearance: obese HEENT Reports moist mucous membranes Eyes PERRL and EOMs intact bilaterally General Eye ED: Negative for pale conjunctiva Neck supple Resp normal respiratory effort and clear to auscultation bilaterally Cardio regular rate and regular rhythm Rate: other Other Details: Radial pulses are plus 2 out of 4 bilaterally are equal and symmetric GI non-distended GI Narrative: Abdomen is soft and nondistended with normal active bowel sounds. There is mild pain with palpation in the midepigastric region without voluntary guarding or rigidity. No pulsatile mass or fluid wave Auscultation: normoactive bowel sounds Palpation: soft Back/Spine no CVA tenderness Extremity normal to inspection Neuro oriented x3 and CN's II-XII intact bilaterally Sensorium / Orientation: alert Psych mental status grossly normal Skin no rashes or lesions noted and skin turgor normal Skin Narrative: Capillary refill is less than 3 seconds General Skin Exam: Negative for jaundice or pallor MDM MDM MDM Narrative Medical decision making narrative: Patient presented to the ER with a soft nonsurgical abdomen. However she was seen yesterday for the same complaint and the like it was slightly worse today so elected to begin with basic lab work and a CT scan. Differential diagnosis is for ruptured internal versus external hemorrhoid versus anal fissure versus diverticular bleed versus infection such as colitis or diverticulitis. Lab work revealed no clinically significant findings. Patient's BUN is not elevated. As she reported bright red blood per rectum I did elect to perform a CTA to check for possible cause of the bleed. CT revealed no obvious signs of acute bleeding or infectious or obstructive pathology. She had no further bouts of blood while in the ER. Therefore at this time I do not feel there is need for further work- up as she is not anemic there is no signs of active bleeding or an obstructive or infective process and vitals are stable and therefore patient is otherwise safe for discharge and can she can follow-up with GI on an outpatient basis to discuss colonoscopy for further evaluation History & Record Review Discussion w/independent historian: Patient Lab Data Attestation: I reviewed the patient's lab results. Labs: Laboratory Results - last 24 hr 03/14/23 00:23 WBC 9.0 RBC 4.75 Hgb 13.7 Hct 41.8 MCV 88.0 MCH 28.8 MCHC 32.8 RDW Std Deviation 40.6 RDW Coeff of [place] 12.6 Plt Count 207 MPV 10.8 Immature Gran % (Auto) 0.600 Neut % (Auto) 61.0 Lymph % (Auto) 25.1 [place] % (Auto) 10.1 H Eos % (Auto) 2.8 Baso % (Auto) 0.4 Absolute Neuts (auto) 5.5 Absolute Lymphs (auto) 2.25 Nucleated RBC % 0 Sodium 138 Potassium 3.8 Chloride 107 Carbon Dioxide 26.0 Anion Gap 5 BUN 13 Creatinine 0.88 Estim Creat Clear Calc 85.12 Est GFR (MDRD) Af Amer 93 Est GFR (MDRD) Non-Af 77 BUN/Creatinine Ratio 14.8 Glucose 118 H Lactic Acid 0.7 Calcium 9.1 Total Bilirubin 0.40 Direct Bilirubin 0.14 AST 23 ALT 46 Alkaline Phosphatase 66 Total Protein 6.7 Albumin 3.4 Globulin 3.3 Lipase 37 Serum , Qual NEGATIVE Radiography Diagnostic Testing: Clinical Impression(s) from Imaging Studies Abdomen/Pelvis CTA 03/14/23 00:08 IMPRESSION: 1. Fatty liver. 2. No GI bleeding identified. Electronically Signed: Jaspal Mcnamara MD at 1:44 EDT , Discharge Plan Triage Chief Complaint: Abd Pain ED Provider: Chinedu Gusman Dx/Rx/DC Orders Clinical Impression: Rectal bleed, Constipation Instructions: GI Bleeding Causes and Tests, ED Constipation (Adult) Prescriptions: No Action lamotrigine 25 mg tablet 100 mg PO DAILY Fiber Gummies 2 gram tablet,chewable PO fluoxetine 20 mg capsule 20 mg PO DAILY Qty: 30 2RF clotrimazole-betamethasone 1-0.05 % cream 1 applic topical BID 14 Days Qty: 45 1RF Metamucil 3.4 gram/5.4 gram powder 1 tbsp PO DAILY Qty: 660 0RF Rx Instructions: mix into at least 8 oz of water or juice before administering docusate sodium 100 mg capsule 100 mg PO BID PRN (Reason: constipation) Qty: 30 0RF omeprazole 20 mg capsule,delayed release(DR/EC) 20 mg PO DAILY Qty: 30 0RF Primary Care Provider: Bina Dorsey Referrals: Bina Dorsey MD [Primary Care Provider] - Activity Restrictions/Additional Instructions: Your blood work showed no clinically significant findings and your CAT scan showed no obvious cause of your intermittent bleeding. Therefore follow-up with GI as previously directed and return to the ER should you have any further concerns Disposition Disposition: Home, Self Care Discharge Date/Time: 03/14/23 02:19
[2023-03-14 02:15] VITALS: BP 117/77; PULSE 58; RESP 17; TEMP 37.7
== END 2023-03-14 02:19 | disposition home or self-care (01) ==
PROVIDERS: Emergency Provider Emergency Medicine; PCP Internal Medicine; Visit Provider Emergency Medicine
DX: K62.5 Hemorrhage of anus and rectum (principal); Z68.41 Body mass index [BMI] 40.0-44.9, adult; K59.00 Constipation, unspecified; E66.9 Obesity, unspecified
CPT/HCPCS: 74174; 80048; 80076; 83605; 83690; 84703; 85025; 96360; 96361; 99283; J7030; Q9967; A4216

== ENCOUNTER 2023-04-12 10:10 | Emergency (ER) | payer MEDICAID, SELFPAY ==
[2023-04-12 10:10] VITALS: BP 147/93; PULSE 70; RESP 16; TEMP 36.4; O2SAT 99; BMI 50.1
--- NOTE | 2023-04-12 10:39 | US_ITS ---
STUDY: ABDOMINAL ULTRASOUND - RIGHT UPPER QUADRANT REASON FOR VISIT: Female, 37 years old . The right upper quadrant pain. TECHNIQUE: Ultrasound evaluation of the right upper quadrant was performed with real-time and static nicole-scale imaging. TECHNICAL QUALITY: Limited. Examination limited due to obesity. COMPARISON: None. FINDINGS: Liver: The liver is enlarged and measures 22.6 cm. There is increased echogenicity consistent with fatty infiltration. The bile ducts are within normal limits. There is hepatic color flow. The direction of portal flow is hepatopetal. There is no demonstrated mass lesion. Gallbladder: Normal distended gallbladder. The gallbladder wall measures 1.8 mm. There is a negative sonographic Anderson''s sign. There is no pericholecystic fluid. There are no gallstones. Common Bile Duct (C.B.D.): The common bile duct measures 4.3 mm. Pancreas: Normal size of the head, body and tail of the pancreas. There is normal echogenicity of the pancreas. There is no demonstrated pancreatic mass or cyst. Right Kidney: Normal size of the right kidney. The right kidney measures 11.9 cm x 6.2 cm x 4.3 cm. Normal renal cortex. The right cortex measures 1.1 cm. There is no demonstrated renal mass or cyst. There is no right hydronephrosis. US/Gallbladder IMPRESSION: Hepatomegaly and fatty infiltration of the liver. Electronically Signed: Nelson Cruz MD at 12:37 EDT ,
[2023-04-12 10:53] LABS: Mucous, Urine 0 SEEN /hpf (<or=2+)
[2023-04-12 10:55] LABS: Color, Urine Yellow (Yellow); Glucose, Dipstick Normal (Normal); Ketone-Dipstick Negative (Negative); Leukocyte Esterase-Dipstick 500 /ul (Negative); Nitrite-Dipstick Negative (Negative); Occult Blood-Urine 10 /ul (Negative); Protein-Dipstick Negative (Negative); Urine Bilirubin Dipstick Negative (Negative); Urine Clarity Sl. Cloudy (Clear); Urine Urobilinogen Normal (Normal)
[2023-04-12 10:57] LABS: Absolute Lymphocyte Count 2.32 X10^3/uL (0.83-4.51); Absolute Neutrophil Count 4.8 X10^3/uL (2.0-7.7); Basophil# 0.04 X10^3/uL; Basophil% 0.5 % (0-1); Eosinophil# 0.27 X10^3/uL; Eosinophils% 3.3 % (0-5); Hematocrit 44.6 % (37-47); Hemoglobin 14.8 g/dL (12.0-15.0); Lymphocyte # 2.32 X10^3/ul (0.83-4.51); Lymphocyte % 28.3 % (19-41); Mean Corp Hgb Conc 33.2 g/dL (32-36); Mean Corpuscular Hgb 28.8 pg (27.0-32.0); Mean Corpuscular Volume 86.8 fL (81-99); Mean Platelet Vol. 11.1 fl (6.2-12.0); Monocyte# 0.74 X10^3/uL; NRBC Flagged by Analyzer 0 % (0-5); Neutrophil % 58.5 % (47-70); Platelet Count 239 K/mm3 (150-450); RBC Distribution Width CV 12.5 % (11.6-14.6); RBC Distribution Width SD 39.8 fl (35.1-43.9); Red Blood Count 5.14 M/mm3 (4.2-5.4); White Blood Count 8.2 K/mm3 (4.4-11.0)
[2023-04-12] MEDS: Ondansetron 4 MG/2 ML Vial IV (10:58)
[2023-04-12] MEDS: 0.9% Normal Saline 1,000 ML 1000 ML IV (10:58)
[2023-04-12] MEDS: Morphine 4 MG/ML Syringe IV (10:58)
[2023-04-12 11:02] LABS: Bacteria 1+ /hpf (None Seen); Red Blood Cells-Urine 0-5 SEEN /hpf (0-5); Squamous Epithelial Cells - UA 0-5 SEEN /hpf (5-10); White Blood Cells 25-50 SEEN /hpf (0-5)
[2023-04-12 11:09] LABS: ALB/GLOB Ratio 1.1 RATIO (0.9-2.4); AST(SGOT) 25 U/L (15-37); Alanine Aminotransfer ALT/SGPT 61 U/L (13-56); Albumin, Serum 3.8 g/dL (3.2-5.0); Alkaline Phosphatase 77 U/L (45-117); Anion Gap 3 (5-15); BUN 11 mg/dL (7-18); BUN/Creat Ratio 13.1 RATIO (10-20); Calcium,Total 8.9 mg/dL (8.5-10.1); Chloride 105 mmol/L (98-107); Creatinine, Serum 0.84 mg/dL (0.55-1.02); EST Glomerular Filtration Rate 81 mL/min (>60); Est Glom Filt Rate - Afr Amer 98 mL/min (>60); Estimated Creatinine Clearance 89.17 ml/min; Globulin 3.6 g/dL (2.2-4.2); Glucose 120 mg/dL (74-106); Lipase 37 U/L (13-75); Potassium 3.9 mmol/L (3.5-5.1); Protein, Total 7.4 g/dL (6.4-8.2); Sodium Level 137 mmol/L (136-145)
--- NOTE | 2023-04-12 11:13 | ED.VIS.GI ---
HPI HPI - GI History of Present Illness Chief Complaint: Abd Pain Informant: patient Abdominal Pain/Flank Pain Onset: Yesterday Context: Gradual Onset Timing: Continuous Quality: Cramping Location: RUQ Worsened by: - (Deep breathing) Relieved by: Nothing Nausea/Vomiting/Emesis GI Symptom: Positive for Nausea; Negative for Vomiting Diarrhea/Melena/Hematochezia GI Symptom: Negative for Diarrhea, Melena or Hematochezia Associated Symptoms Associated Symptoms: Negative for Dysuria, Frequency or Hematuria Narrative Narrative: Patient presents with abdominal pain that began yesterday. Patient states it can came on gradually. Patient states it has been constant. Patient describes the pain as cramping. Patient states the pain is mainly over the right upper quadrant. Patient states the pain radiates into her back. Patient admits to some nausea but denies any vomiting. Patient states her pain is worse with deep breathing. Patient states nothing makes it better. Patient admits to some loose stools. Patient denies any melena or hematochezia. Patient denies any urinary complaints. Patient states her last menstrual period was approximately 1 week ago. Patient states she has a history of fatty liver disease. [facility] Medical History Anxiety Depression Fatty liver Hx: UTI (urinary tract infection) Liver disease Home Medications fluoxetine 20 mg capsule 20 mg PO DAILY #30 caps 10/27/22 [Rx Last Taken Unknown] inulin 2 gram chewable tablet (Fiber Gummies) g PO 10/27/22 [History Last Taken Unknown] docusate sodium 100 mg capsule 100 mg PO BID PRN constipation #30 caps 12/08/22 [Rx Last Taken Unknown] lamotrigine 25 mg tablet 100 mg PO DAILY 12/08/22 [History Last Taken Unknown] psyllium husk 3.4 gram/5.4 gram oral powder (Metamucil) 1 tbsp PO DAILY #660 grams 12/08/22 [Rx Last Taken Unknown] clotrimazole-betamethasone 1 %-0.05 % topical cream 1 applic topical BID 2 weeks #45 grams 12/20/22 [Rx Last Taken Unknown] omeprazole 40 mg capsule,delayed release 40 mg PO QDAY #30 caps 03/28/23 [Rx Last Taken Unknown] hydrocodone-acetaminophen 5-325mg 5mg-325mg 1 tab PO Q6H PRN PRN Pain 3 days #10 TABLETS 04/12/23 [Rx Last Taken Unknown] sulfamethoxazole 800 mg-trimethoprim 160 mg tablet 1 tab PO BID #6 TABLETS 04/12/23 [Rx Last Taken Unknown] Allergy/AdvReac Type Severity Reaction Status Date / Time No Known Allergies Allergy Verified 04/12/23 10:12 Family History Father Anxiety Depression Grandfather Cancer unknown Surgical History No pertinent past surgical history Social History adopted: No household members: significant other and children housing: house number of children: 1 current occupational status: employed current occupation: [employer] Smoking Status: Never smoker Electronic Cigarette Use: not used alcohol intake: current alcohol intake frequency: holidays/special occasions only substance use type: does not use seatbelt use: sometimes do you feel safe at home: Yes additional social history: Boyfriend- Ricki- Horse shoeing ROS ROS ED Constitutional Constitutional ED: Denies chills or fever(s) Eyes Eyes: Denies blurry vision or change in vision ENT ENT ED: Denies rhinorrhea or sore throat Cardiovascular Cardiovascular: Denies chest pain or palpitations Respiratory/Chest Respiratory/Chest: Denies cough or dyspnea Gastrointestinal Gastrointestinal: Reports abdominal pain and nausea; Denies diarrhea or vomiting Genitourinary Genitourinary ED: Denies dysuria or hematuria Musculoskeletal Musculoskeletal: Reports back pain; Denies neck pain Integumentary Denies abscess or rash Neurologic Neurologic: Denies headache(s) or weakness Allergic/Immunologic Allergic/Immunologic ED: Denies mouth swelling or urticaria EXAM Physical Exam Const Vital Signs: 04/12/23 10:10 04/12/23 11:33 Temperature 97.6 F L Temperature Source Temporal Pulse Rate 70 78 Respiratory Rate 16 16 Blood Pressure 147/93 H 119/78 Blood Pressure Mean 111 91 Pulse Ox 99 100 Oxygen Delivery Method Room Air Positive well nourished, well developed and obese General Appearance ED: well developed and NAD Nutritional Appearance: obese HEENT Reports moist mucous membranes Neck supple and no JVD Resp normal respiratory effort and clear to auscultation bilaterally Cardio regular rate, regular rhythm and no murmurs GI normal to inspection, nondistended, normoactive bowel sounds Palpation: soft and tender RUQ and Anderson's sign; Negative for guarding or rebound tenderness present Extremity normal to inspection General Extremety ED: Negative for edema or tenderness General Extremity: Negative for edema Neuro oriented x3, CN's II-XII intact bilaterally and no sensory deficits noted Sensorium / Orientation: alert Motor Exam: strength 5/5 throughout Psych mental status grossly normal Skin no rashes or lesions noted MDM MDM MDM Narrative Medical decision making narrative: Differential diagnosis includes cholelithiasis, cholecystitis, gastritis, peptic ulcer disease, duodenal ulcer, pancreatitis, pyelonephritis, and urinary tract infection. CBC will be obtained to assess for leukocytosis and anemia. Comprehensive metabolic profile will be obtained to assess for hepatic function, renal function, and electrolyte abnormality. Urinalysis will be obtained to assess for urinary tract infection. Lipase will be obtained to assess for pancreatitis. Serum hCG will be obtained to assess for . Right upper quadrant ultrasound will be obtained to assess for cholelithiasis and cholecystitis. Lab Data Attestation: I reviewed the patient's lab results. Lab results narrative: CBC was reviewed and was within normal limits. Comprehensive metabolic profile was reviewed and was essentially within normal limits. Lipase was reviewed and was normal. Urinalysis was reviewed. Leukocyte esterase was 500 with 25-50 white blood cells. There is 1+ bacteria. Labs: Laboratory Results - last 24 hr 04/12/23 10:25 WBC 8.2 RBC 5.14 Hgb 14.8 Hct 44.6 MCV 86.8 MCH 28.8 MCHC 33.2 RDW Std Deviation 39.8 RDW Coeff of [place] 12.5 Plt Count 239 MPV 11.1 Immature Gran % (Auto) 0.400 Neut % (Auto) 58.5 Lymph % (Auto) 28.3 [place] % (Auto) 9.0 Eos % (Auto) 3.3 Baso % (Auto) 0.5 Absolute Neuts (auto) 4.8 Absolute Lymphs (auto) 2.32 Nucleated RBC % 0 Sodium 137 Potassium 3.9 Chloride 105 Carbon Dioxide 29.0 Anion Gap 3 L BUN 11 Creatinine 0.84 Estim Creat Clear Calc 89.17 Est GFR (MDRD) Af Amer 98 Est GFR (MDRD) Non-Af 81 BUN/Creatinine Ratio 13.1 Glucose 120 H Calcium 8.9 Total Bilirubin 0.80 AST 25 ALT 61 H Alkaline Phosphatase 77 Total Protein 7.4 Albumin 3.8 Globulin 3.6 Albumin/Globulin Ratio 1.1 Lipase 37 Serum , Qual NEGATIVE Urine Color Yellow Urine Clarity Sl. Cloudy Urine pH 7.0 Ur Specific [place] 1.010 Urine Protein Negative Urine Glucose (UA) Normal Urine Ketones Negative Urine Occult Blood 10 H Urine Nitrite Negative Urine Bilirubin Negative Urine Urobilinogen Normal Ur Leukocyte Esterase 500 H Urine RBC 0-5 SEEN Urine WBC 25-50 SEEN Ur Squamous Epith Cells 0-5 SEEN Urine Bacteria 1+ Urine Mucus 0 SEEN Radiography Diagnostic Testing: Clinical Impression(s) from Imaging Studies Gallbladder Ultrasound 04/12/23 10:39 IMPRESSION: Hepatomegaly and fatty infiltration of the liver. Electronically Signed: Nelson Cruz MD at 12:37 EDT , Right upper quadrant ultrasound was obtained. There is hepatomegaly and fatty infiltration of the liver. There are no gallstones noted. There is no gallbladder wall thickening. There is no ductal dilatation noted. There is no pericholecystic fluid. This was interpreted by the radiologist and was also independently reviewed by myself. Treatment and Re-Evaluation :: Patient was given IV fluids, morphine, and Zofran. Urine culture was obtained. Patient was feeling better on reevaluation. Patient was advised of her findings. Patient was given a prescription for Bactrim. Patient was also given a prescription for a short course of [place] to take as needed for pain. Patient was instructed to follow-up with her primary care physician in 5 to 7 days. Patient understood and was agreeable with the plan. All questions were answered. Discharge Plan Triage Chief Complaint: Abd Pain ED Provider: Adonis Bledsoe Dx/Rx/DC Orders Clinical Impression: Right upper quadrant abdominal pain, Fatty liver Instructions: ED Abdominal Pain Unkn Cause Fem Prescriptions: New hydrocodone-acetaminophen [hydrocodone-acetaminophen] 5-325 mg tablet 1 tab PO Q6H PRN PRN (Reason: Pain) 3 Days Qty: 10 0RF sulfamethoxazole-trimethoprim [sulfamethoxazole-trimethoprim] 800-160 mg tablet 1 tab PO BID Qty: 6 0RF No Action lamotrigine 25 mg tablet 100 mg PO DAILY Fiber Gummies 2 gram tablet,chewable PO fluoxetine 20 mg capsule 20 mg PO DAILY Qty: 30 2RF clotrimazole-betamethasone 1-0.05 % cream 1 applic topical BID 14 Days Qty: 45 1RF Metamucil 3.4 gram/5.4 gram powder 1 tbsp PO DAILY Qty: 660 0RF Rx Instructions: mix into at least 8 oz of water or juice before administering docusate sodium 100 mg capsule 100 mg PO BID PRN (Reason: constipation) Qty: 30 0RF omeprazole 40 mg capsule,delayed release(DR/EC) 40 mg PO QDAY Qty: 30 3RF Rx Instructions: swallow whole; do not crush, chew, dissolve, cut, break Primary Care Provider: Bina Dorsey Referrals: Bina Dorsey MD [Primary Care Provider] - 5-7 Days Disposition Disposition: Home, Self Care
[2023-04-12 11:17] LABS: Internal QC Validated? YES +Cl - CLEAR BKGD; Pregnancy, Serum, hCG Quali. NEGATIVE Negative
[2023-04-12 11:33] VITALS: BP 119/78; PULSE 78; RESP 16; O2SAT 100
[2023-04-12 13:23] VITALS: BP 128/70; PULSE 73; RESP 16
== END 2023-04-12 13:25 | disposition home or self-care (01) ==
PROVIDERS: Emergency Provider Emergency Medicine; PCP Internal Medicine; Visit Provider Emergency Medicine
DX: K76.0 Fatty (change of) liver, not elsewhere classified (principal); Z68.43 Body mass index [BMI] 50.0-59.9, adult; E66.9 Obesity, unspecified
CPT/HCPCS: 36415; 76705; 80053; 81001; 83690; 84703; 85025; 87086; 87088; 96361; 96374; 96375; 99282; J2405

== ENCOUNTER 2023-04-17 07:56 | Day surgery (SDC) | payer MEDICAID, SELFPAY ==
[2023-04-17] VITALS (7 sets, daily range): BP systolic 107–146; BP diastolic 63–88; PULSE 73–80; RESP 16; TEMP 36.1–36.6; O2SAT 96–100; BMI 43.0
[2023-04-17 08:22] LABS: Internal QC Validated? YES +Cl - CLEAR BKGD; Pregnancy, Urine Negative Negative
--- NOTE | 2023-04-17 08:22 | PCM.HP.BLA ---
History and Physical Date of Admission: 04/17/23 Date of Service: 03/27/23 MR#: [id number] Acct: [id number] Name: RAIZA CHIU Rep #: [id number] : 1985 Provider: Dr. Angélica Hall MD Age/Sex: 37/F Location: [facility] Status: Signed with Addenda ADDENDUM by Dr. Angélica Hall MD on 03/28/23 at 1533 Intake Chief Complaint: BLOOD IN STOOL Allergies No Known Allergies Allergy (Verified 03/27/23 13:13) Medications fluoxetine 20 mg capsule 20 mg PO DAILY #30 caps 10/27/22 [Rx Confirmed 03/27/23] inulin 2 gram chewable tablet (Fiber Gummies) g PO 10/27/22 [History Confirmed 03/27/23] docusate sodium 100 mg capsule 100 mg PO BID PRN constipation #30 caps 12/08/22 [Rx Confirmed 03/27/23] lamotrigine 25 mg tablet 100 mg PO DAILY 12/08/22 [History Confirmed 03/27/23] psyllium husk 3.4 gram/5.4 gram oral powder (Metamucil) 1 tbsp PO DAILY #660 grams 12/08/22 [Rx Confirmed 03/27/23] clotrimazole-betamethasone 1 %-0.05 % topical cream 1 applic topical BID 2 weeks #45 grams 12/20/22 [Rx Confirmed 03/27/23] omeprazole 40 mg capsule,delayed release 40 mg PO QDAY #30 caps 03/28/23 [Rx Confirmed 03/28/23] Assessment and Plan Assessment and Plan (1) BRBPR (bright red blood per rectum): Status: Acute (2) GERD (gastroesophageal reflux disease): Status: Acute (3) LUQ pain: Status: Acute (4) Epigastric abdominal pain: Status: Acute Medications: New omeprazole swallow whole; do not crush, chew, dissolve, cut, break 40 mg PO QDAY 30 caps 3RF Discontinued omeprazole Discontinued Reason: Order Changed 20 mg PO DAILY 30 caps 0RF 03/28/23 1533 <Electronically signed by Angélica Hall MD> Date Angélica Hall MD cc: Dr. Bina Dorsey MD ~* Signed Intake Vital Signs 03/12/2315:51 03/13/2323:04 03/27/2313:11 Height 5 ft 7 in 5 ft 7 in 5 ft 7 in Weight: 276 lb 2 oz BMI 43.2 BP 135/84 H Blood Pressure Location Rt brachial Position Sitting Respiration 17 Pulse 110 H Pulse Source Monitor Pulse Oximetry (%) 96 Oxygen Delivery Method room air Intake Visit Reasons: HEMORRHAGE OF RECTUM Chief Complaint: BLOOD IN STOOL Allergies No Known Allergies Allergy (Verified 03/27/23 13:13) Medications fluoxetine 20 mg capsule 20 mg PO DAILY #30 caps 10/27/22 [Rx Confirmed 03/27/23] inulin 2 gram chewable tablet (Fiber Gummies) g PO 10/27/22 [History Confirmed 03/27/23] docusate sodium 100 mg capsule 100 mg PO BID PRN constipation #30 caps 12/08/22 [Rx Confirmed 03/27/23] lamotrigine 25 mg tablet 100 mg PO DAILY 12/08/22 [History Confirmed 03/27/23] psyllium husk 3.4 gram/5.4 gram oral powder (Metamucil) 1 tbsp PO DAILY #660 grams 12/08/22 [Rx Confirmed 03/27/23] clotrimazole-betamethasone 1 %-0.05 % topical cream 1 applic topical BID 2 weeks #45 grams 12/20/22 [Rx Confirmed 03/27/23] omeprazole 40 mg capsule,delayed release 40 mg PO QDAY #30 caps 03/28/23 [Rx Confirmed 03/28/23] PFSH Medical History Anxiety Depression Fatty liver Hx: UTI (urinary tract infection) Liver disease Surgical History No pertinent past surgical history Family History Father Anxiety DepressionGrandfather Cancer unknown Social History adopted: No household members: significant other and children housing: house number of children: 1 current occupational status: employed 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 Patient states a week ago she had 3 days of bright red blood per rectum. Patient states she was constipated during that time was still having bowel movements daily but they were hard. Patient also was straining during that time. Patient has started to take aragon which is fruits and vegetable drink also drinks plenty of water. Patient is aware of a hemorrhoid as she can feel it. Patient never had previous EGD or colonoscopy. Patient also complains of left upper quadrant right upper quadrant epigastric pain and reflux daily. Patient does have some burning up her esophagus denies any nausea in the morning. Patient denies any family history of colon cancer. ROS General General: No weight change, appetite, fatigue, colon cancer, breast cancer or weakness HEENT HEENT: No difficulty swallowing, eye injury, eye surgery, swollen glands or hoarseness Endo Endocrine: No thyroid disease, diabetes mellitus, thyroid cancer, Hair loss, heat intolerance or cold intolerance Skin Skin: No rash or changing moles Breast Breast: No left breast lump, right breast lump, nipple discharge, breast pain, abnormal mammogram, abnormal US or breast enlargement Musc Musculoskeletal: No back problems, arthritis, rheumatoid arthritis, gout or joint pain Cardio Cardiovascular: No murmur, pacemaker, heart disease, atrial fibrillation, high blood pressure, heart attack, heart stent, palpitations, shortness of breat with exertion or chest pain Psych Psychiatric: Yes depression and anxiety; No hearing voices Resp Respiratory: No shortness of breath, No sleep apnea, No cough, No COPD, No asthma, No emphysema and No wheezing Gastro Gastrointestinal: Yes abdominal pain, Yes nausea or vomiting, Yes diarrhea, Yes constipation, Yes blood in stool, Yes acid reflux, No hemorrhoids, No ulcers, No gallbladder problem and Yes black,tarry stools Bubba Hematologic: No blood thinners, No blood disorders, No bleeding, No anemia and No blood clots Neuro Neurologic: No system reviewed and no additional complaints, except as documented, No as per HPI, No abnormal gait, No abnormal hearing, No abnormal movements, No abnormal speech, No behavioral changes, No burning sensations, No confusion, No convulsions, No disequilibrium, No dizziness, No localized weakness, No frequent falls, No headache(s), No lack of coordination, No loss of vision, No memory loss, No numbness, No other visual disturbances, No radicular pain, No restless legs, No sensory deficit, No syncope, No tingling, No tremor(s), No weakness and No other Exam Const General: cooperative, healthy appearing, comfortable and no acute distress [facility] Head: normocephalic and atraumatic Neck Neck: supple Resp Effort & Inspection: normal respiratory effort Cardio Rate: regular rate GI Inspection: non-distended Palpation: soft, no guarding, no hernias and tender in the epigastrum and in the LUQ; with no rebound tenderness Skin General: no rashes or lesions noted Neuro General: CN's II-XI intact bilaterally Extrem General: normal to inspection Psych Mental Status: mental status grossly normal Attitude: cooperative Assessment and Plan Assessment and Plan (1) BRBPR (bright red blood per rectum): Status: Acute (2) GERD (gastroesophageal reflux disease): Status: Acute (3) LUQ pain: Status: Acute (4) Epigastric abdominal pain: Status: Acute Medications: New omeprazole swallow whole; do not crush, chew, dissolve, cut, break 40 mg PO QDAY 30 caps 3RF Discontinued omeprazole Discontinued Reason: Order Changed 20 mg PO DAILY 30 caps 0RF Plan Did discuss the importance of high-fiber diet to help with constipation as long as she is taking adequate liquids?did give patient a sheet with high-fiber foods and as well. Also sending a prescription for omeprazole 40 mg p.o. daily. Patient currently states she is not on omeprazole?upon looking. Appears that PCP did send in omeprazole 20 mg?we will plan to still send in the 40 mg. I have discussed the above with the patient. I have offered the patient EGD and colonoscopy for evaluation. I have explained the risks/benefits of the procedure and described the procedure. I have discussed the risks with the patient, including but not limited to: infection, bleeding, perforation of the GI tract requiring emergency surgery, inability to complete the procedure, injury to any internal organs, complications of anesthesia, etc. - the patient understands and agrees to proceed. I have answered all the patient's questions to the patient's satisfaction and the patient has no further questions. The patient has been given instructions for the colon cleansing preparation. 1 day of clears, MiraLAX Dulcolax split prep. Angélica Hall M.D. Pager: [phone] [facility] [address] [place] [address], [facility], [address] [place] [address] Office: [phone] Coding Level of Care Code Off vis,new,level 4 Diagnoses BRBPR (bright red blood per rectum) K62.5 GERD (gastroesophageal reflux disease) K21.9 LUQ pain R10.12 Epigastric abdominal pain R10.13 03/28/23 1533 <Electronically signed by Angélica Hall MD> Date Angélica Hall MD
[2023-04-17] MEDS: Lactated Ringers 1,000 ML 15 ML IV (08:26)
--- NOTE | 2023-04-17 09:15 | IMM_PTH ---
PATIENT: RAIZA CHIU LOC: EN U#:[id number] AGE/SX: 37/F ROOM: RE04/17/[address]: Dr. Angélica Hall MD : 1985 BED: DIS: 04/17/2023 SPEC #: [id number] RECD: 04/17/23 13:51 STATUS: HIRA REMasoud #: [id number] DARLENE: 04/17/23 09:[address]: Angélica Hall DEPT: IMMUNOHISTOCHEMISTRY RECD BY: Tessa Grove ENTERED: 04/17/23 13:52 SP TYPE: IMMUNO OTHR DR: Dr. Bina Dorsey MD Tissues: Stomach, NOS Procedures: H Pylori (initial) PHYSICIAN & [place] [id number] SPECIMEN INFORMATION: Tissue Source: Antrum Clinical Info: LUQ abdominal pain, epigastric abdominal pain, GERD, bright red blood per rectum Specimen Number: [id number] CPT code: 46615 METHODOLOGY: Deparaffinized sections of prefer/formalin-fixed tissue or PAP/DQ stained slides are incubated with monoclonal/polyclonal antibodies/oligonucleotide probes. Localization is made via biotin free immunoperoxidase method. Appropriate controls are performed and reacted as expected. Results on target cell population are indicated in the following table: RESULTS: ANTIBODY / CLONE RESULT H Pylori (polyclonal) negative These tests were developed and their performance characteristics determined by [facility]. They may not have been cleared or approved by the U.S. Food and Drug Administration. The FDA has determined that such clearance or approval is not necessary. The above immunohistochemical/dualISH markers are ordered and reviewed by the Pathologist. INTERPRETATION: Antrum, biopsy: Negative for Helicobacter pylori organisms. AM:cathy 04/18/2023
--- NOTE | 2023-04-17 09:15 | EGD_PTH ---
PATIENT: RAIZA CHIU LOC: EN U#:[id number] AGE/SX: 37/F ROOM: RE04/17/[address]: Dr. Angélica Hall MD : 1985 BED: DIS: 04/17/2023 SPEC #: [id number] RECD: 04/17/23 12:27 STATUS: HIRA GENEVIEVE #: [id number] DARLENE: 04/17/23 09:[address]: Angélica Hall DEPT: SURGICAL PATHOLOGY RECD BY: Karla Fisher ENTERED: 04/17/23 13:30 SP TYPE: EGD BIOPSY OT DR: Dr. Bina Dorsey MD Tissues: Gastric mucous membrane Procedures: Surgery Specimen Level IV HEADER OPERATION: Colonoscopy, EGD and biopsy PRE-OP DIAGNOSIS: LUQ abdominal pain, epigastric abdominal pain, GERD, bright red blood per rectum TISSUE SUBMITTED: Antrum biopsy, H. pylori and path MICROSCOPIC DIAGNOSIS Gastric antrum, biopsy: Mild chronic gastritis. See comment. AM:cathy 04/18/2023 COMMENT The results of immunohistochemistry for Helicobacter pylori will be reported separately ([id number]). MICROSCOPIC DESCRIPTION Slides are reviewed. GROSS DESCRIPTION Received in fixative is one container labeled with the patient's name and designated antrum biopsy. The specimen consists of one irregular fragment of light marin soft tissue that measures 0.5 x 0.3 x 0.1 cm. The specimen is totally submitted in one cassette. / SJ:cathy 04/17/2023 TC:3 CPT: 13832
--- NOTE | 2023-04-17 10:53 | OP.EGD_ITS ---
Patient Name: Chelsie Augustin Procedure Date: 04/17/2023 9:06 AM Date of : 1985 Age: 37 Procedure: Upper GI endoscopy Indications: Epigastric abdominal pain, Abdominal pain in the left upper quadrant, Heartburn Providers: Angélica Hall MD Referring MD: Bina Dorsey Md Medicines: Monitored Anesthesia Care Patient Profile: This is a 37 year old female. Complications: No immediate complications. Procedure: Pre-Anesthesia Assessment: - Prior to the procedure, a History and Physical was performed, and patient medications and allergies were reviewed. The patient's tolerance of previous anesthesia was also reviewed. The risks and benefits of the procedure and the sedation options and risks were discussed with the patient. All questions were answered, and informed consent was obtained. Prior Anticoagulants: The patient has taken no previous anticoagulant or antiplatelet agents. ASA Grade Assessment: Per anesthesia. After reviewing the risks and benefits, the patient was deemed in satisfactory condition to undergo the procedure. After obtaining informed consent, the endoscope was passed under direct vision. Throughout the procedure, the patient's blood pressure, pulse, and oxygen saturations were monitored continuously. The Colonoscope was introduced through the mouth, and advanced to the second part of duodenum. The upper GI endoscopy was accomplished without difficulty. The patient tolerated the procedure well. Scope In: 10:20:53 AM Scope Out: 10:24:19 AM Total Procedure Duration Time 0 hours 3 minutes 26 seconds Findings: The Z-line was variable and was found 40 cm from the incisors. Mildly erythematous mucosa without bleeding was found in the gastric antrum. Biopsies were taken with a cold forceps for histology. Biopsies were taken with a cold forceps for Helicobacter pylori cultures. The examined duodenum was normal. The cardia and gastric fundus were normal on retroflexion. Impression: - Z-line variable, 40 cm from the incisors. - Erythematous mucosa in the antrum. Biopsied. - Normal examined duodenum. Recommendation: - Await pathology results. - Discharge patient to home. - Resume previous diet. - Continue present medications. Procedure Code(s): --- Professional --- 38247, Esophagogastroduodenoscopy, flexible, transoral; with biopsy, single or multiple Diagnosis Code(s): --- Professional --- K22.8, Other specified diseases of esophagus K31.89, Other diseases of stomach and duodenum R10.13, Epigastric pain R10.12, Left upper quadrant pain R12, Heartburn CPT copyright 2017 [employer]. All rights reserved. The codes documented in this report are preliminary and upon thrasher feeder review may be revised to meet current compliance requirements. MD Angélica Sorensen MD 04/17/2023 10:52:45 AM This report has been signed electronically. Number of Addenda: 0 Note Initiated On: 04/17/2023 9:06 AM
--- NOTE | 2023-04-17 10:53 | OP.CCLET_ITS ---
04/17/2023 Bina Dorsey Md Re : Upper GI endoscopy procedure for Chelsie Augustin Dear Willian This procedure was performed on Monday, April 17, 2023. My impressions and recommendations are as follows: Impressions : - Z-line variable, 40 cm from the incisors. - Erythematous mucosa in the antrum. Biopsied. - Normal examined duodenum. Recommendations : - Await pathology results. - Discharge patient to home. - Resume previous diet. - Continue present medications. My findings are described in the full procedure note, which is enclosed. If I can be of further assistance, please feel free to contact me at Doctor phone number(s): , Work: . Sincerely, MD Angélica Sorensen MD 04/17/2023 10:52:45 AM This report has been signed electronically.
--- NOTE | 2023-04-17 11:00 | OP.CCLET_ITS ---
04/17/2023 Bina Dorsey Md Re : Colonoscopy procedure for Chelsie Augustin Dear Willian This procedure was performed on Monday, April 17, 2023. My impressions and recommendations are as follows: Impressions : - Non-bleeding internal hemorrhoids. - The entire examined colon is normal. - No specimens collected. Recommendations : - Discharge patient to home. - Resume previous diet. - Continue present medications. - Repeat colonoscopy in 10 years for screening purposes. My findings are described in the full procedure note, which is enclosed. If I can be of further assistance, please feel free to contact me at Doctor phone number(s): , Work: . Sincerely, MD Angélica Sorensen MD 04/17/2023 11:00:15 AM This report has been signed electronically.
--- NOTE | 2023-04-17 11:00 | OP.COLON_ITS ---
Patient Name: Chelsie Augustin Procedure Date: 04/17/2023 10:24 AM Date of : 1985 Age: 37 Procedure: Colonoscopy Indications: Screening for colorectal malignant neoplasm Providers: Angélica Hall MD Referring MD: Bina Dorsey Md Medicines: Monitored Anesthesia Care Patient Profile: This is a 37 year old female. Last Colonoscopy: none. The patient's first colonoscopy is today. Complications: No immediate complications. Procedure: Pre-Anesthesia Assessment: - Prior to the procedure, a History and Physical was performed, and patient medications and allergies were reviewed. The patient's tolerance of previous anesthesia was also reviewed. The risks and benefits of the procedure and the sedation options and risks were discussed with the patient. All questions were answered, and informed consent was obtained. Prior Anticoagulants: The patient has taken no previous anticoagulant or antiplatelet agents. ASA Grade Assessment: Per anesthesia. After reviewing the risks and benefits, the patient was deemed in satisfactory condition to undergo the procedure. After I obtained informed consent, the scope was passed under direct vision. Throughout the procedure, the patient's blood pressure, pulse, and oxygen saturations were monitored continuously. The Colonoscope was introduced through the anus and advanced to the cecum, identified by the appendiceal orifice, ileocecal valve and palpation. The colonoscopy was performed without difficulty. The patient tolerated the procedure well. The quality of the bowel preparation was good. Scope In: 10:26:23 AM Scope Withdrawal Time 0 hours 10 minutes 51 seconds Scope Out: 10:44:23 AM Total Procedure Duration Time 0 hours 18 minutes 0 seconds Findings: The perianal and digital rectal examinations were normal. Non-bleeding internal hemorrhoids were found. The hemorrhoids were Grade I (internal hemorrhoids that do not prolapse). The entire examined colon appeared normal. Impression: - Non-bleeding internal hemorrhoids. - The entire examined colon is normal. - No specimens collected. Recommendation: - Discharge patient to home. - Resume previous diet. - Continue present medications. - Repeat colonoscopy in 10 years for screening purposes. Procedure Code(s): --- Professional --- G0121, PT, Colorectal cancer screening; colonoscopy on individual not meeting criteria for high risk Diagnosis Code(s): --- Professional --- Z12.11, Encounter for screening for malignant neoplasm of colon K64.0, First degree hemorrhoids CPT copyright 2017 [employer]. All rights reserved. The codes documented in this report are preliminary and upon commodity supervisor review may be revised to meet current compliance requirements. MD Angélica Sorensen MD 04/17/2023 11:00:15 AM This report has been signed electronically. Number of Addenda: 0 Note Initiated On: 04/17/2023 10:24 AM
== END 2023-04-17 11:45 | disposition home or self-care (01) ==
LOC: EN 07:58 → AC 08:00
PROVIDERS: Anesthesiology; PCP Internal Medicine; Referring Provider Internal Medicine; Visit Provider Surgery
PROC: 0DJD8ZZ Inspection of Lower Intestinal Tract, Via Natural or Artificial Opening Endoscopic (ICD-10-PCS; CPT 45378; principal; 2023-04-17 09:10)
DX: Z12.11 Encounter for screening for malignant neoplasm of colon (principal); K64.0 First degree hemorrhoids; K21.9 Gastro-esophageal reflux disease without esophagitis; K22.89 Other specified disease of esophagus; K29.50 Unspecified chronic gastritis without bleeding; K62.5 Hemorrhage of anus and rectum; K76.0 Fatty (change of) liver, not elsewhere classified; K59.09 Other constipation; Z79.899 Other long term (current) drug therapy
CPT/HCPCS: 45378; 43239; 81025; 88305; 88342; J7120; J2405

== ENCOUNTER 2023-06-10 09:38 | Emergency (ER) | payer MEDICAID, SELFPAY ==
[2023-06-10 09:39] VITALS: BP 149/89; PULSE 74; RESP 18; TEMP 35.9; O2SAT 100; BMI 43.3
--- NOTE | 2023-06-10 10:15 | ED.VIS.FEGU ---
HPI HPI - Female History of Present Illness Chief Complaint: Female C/O Informant: patient Narrative Narrative: Patient present at the advice of the nurse line after starting her menstrual cycle yesterday, having an excessive amount of cramping compared to usual, mostly pelvic nonlateralizing but also diffuse radiation throughout her abdomen, some nausea, and lightheadedness with standing that is better with lying down since yesterday. No syncope. No near syncope. No chest pain or shortness of breath. No fevers or chills. No urinary symptoms. Does not think she is . Menstrual cycles are usually irregular, her last 1 was about 6 weeks ago, and she typically does have heavy flow with clots like she has had since yesterday. She did see her part maker about this, and admits that she is not on control or other medications for this because they were offered by her part maker and she refused. She states basically the thing that is different this time is that she is lightheaded and the pain is more prominent although the pain is the same type. PFSH PFSH Medical History Anxiety Chronic constipation Depression Easy bruising Fatty liver Hx: UTI (urinary tract infection) Liver disease Non-smoker Shortness of breath on exertion Wears dentures Wears glasses Home Medications lamotrigine 25 mg tablet 100 mg PO DAILY 12/08/22 [History Last Taken Unknown] omeprazole 40 mg capsule,delayed release 40 mg PO QDAY #30 caps 03/28/23 [Rx Last Taken Unknown] fluoxetine 40 mg capsule 40 mg PO DAILY #30 caps 06/06/23 [Rx Last Taken Unknown] hydroxyzine HCl 25 mg tablet 25 mg PO TID PRN itching #30 tabs 06/06/23 [Rx Last Taken Unknown] triamcinolone acetonide 0.5 % topical ointment 1 applic topical BID 2 weeks #15 grams 06/06/23 [Rx Last Taken Unknown] Allergy/AdvReac Type Severity Reaction Status Date / Time No Known Allergies Allergy Verified 06/10/23 09:39 Family History Father Anxiety Depression Grandfather Cancer unknown Surgical History No pertinent past surgical history no surgical history Social History adopted: No household members: significant other and children housing: house number of children: 1 current occupational status: employed current occupation: [employer] Smoking Status: Never smoker Electronic Cigarette Use: not used alcohol intake: current alcohol intake frequency: holidays/special occasions only substance use type: does not use seatbelt use: sometimes do you feel safe at home: Yes additional social history: Boyfriend- Ricki- Horse [employer]ing ROS ROS ED Constitutional Constitutional ED: Denies chills or fever(s) Eyes Eyes: Denies change in vision or diplopia ENT ENT ED: Denies rhinorrhea or sore throat Cardiovascular Cardiovascular: Reports lightheadedness; Denies chest pain, leg edema or palpitations Respiratory/Chest Respiratory/Chest: Denies cough or dyspnea Gastrointestinal Gastrointestinal: Reports abdominal pain and nausea; Denies diarrhea or vomiting Genitourinary Genitourinary ED: Denies dysuria, hematuria or urinary frequency Musculoskeletal Musculoskeletal: Denies back pain or neck pain Integumentary Denies abscess or rash Neurologic Neurologic: Denies headache(s), paresthesias or weakness Psychiatric Psychiatric: Denies anxiety or suicidal thoughts EXAM Physical Exam Const Vital Signs: 06/10/23 09:39 Temperature 96.7 F L Temperature Source Temporal Pulse Rate 74 Respiratory Rate 18 Blood Pressure 149/89 H Blood Pressure Mean 109 Pulse Ox 100 Oxygen Delivery Method Room Air Positive well nourished, well developed and obese Constitutional Narrative: Well-appearing General Appearance ED: well developed and NAD Nutritional Appearance: obese HEENT Reports moist mucous membranes normocephalic and atraumatic Eyes PERRL and EOMs intact bilaterally Neck full ROM and supple Resp normal respiratory effort and clear to auscultation bilaterally Cardio regular rate, regular rhythm and no murmurs Rate: Negative for tachycardic GI non-tender and non-distended Auscultation: normoactive bowel sounds Palpation: soft Back/Spine no CVA tenderness General Back: other FROM Extremity normal to inspection General Extremety ED: Negative for edema, pulses abnormal or tenderness General Extremity: Negative for edema or pulses abnormal Neuro oriented x3, CN's II-XII intact bilaterally and no sensory deficits noted Sensorium / Orientation: awake and alert Motor Exam: strength 5/5 throughout Skin no rashes or lesions noted and no wounds MDM MDM MDM Narrative Medical decision making narrative: Vital signs are normal prior to treatment. She is well-appearing with very benign exam. is negative, labs are noted and unremarkable with a hemoglobin in the normal range of 14.2 similar to prior. Patient was given a liter of IV fluids and IV Toradol, she declined antiemetic. She feels much better on reevaluation; advised to follow-up with her part maker after the weekend. Lab Data Attestation: I reviewed the patient's lab results. Labs: Laboratory Results - last 24 hr 06/10/23 06/10/23 10:16 10:20 WBC 8.0 RBC 4.88 Hgb 14.2 Hct 42.7 MCV 87.5 MCH 29.1 MCHC 33.3 RDW Std Deviation 40.7 RDW Coeff of [place] 12.7 Plt Count 234 MPV 10.6 Immature Gran % (Auto) 0.500 Neut % (Auto) 62.5 Lymph % (Auto) 25.3 [place] % (Auto) 8.1 Eos % (Auto) 3.1 Baso % (Auto) 0.5 Absolute Neuts (auto) 5.0 Absolute Lymphs (auto) 2.01 Nucleated RBC % 0 Sodium 135 L Potassium 3.9 Chloride 108 H Carbon Dioxide 27.0 Anion Gap 0 L BUN 9 Creatinine 0.90 Estim Creat Clear Calc 83.23 Est GFR (MDRD) Af Amer 91 Est GFR (MDRD) Non-Af 75 BUN/Creatinine Ratio 10.0 Glucose 121 H Calcium 8.4 L Urine Test Negative Discharge Plan Triage Chief Complaint: Female C/O ED Provider: Cedric Poe Dx/Rx/DC Orders Clinical Impression: Menometrorrhagia Instructions: ED Heavy Menstrual Bleeding Prescriptions: No Action lamotrigine 25 mg tablet 100 mg PO DAILY omeprazole 40 mg capsule,delayed release(DR/EC) 40 mg PO QDAY Qty: 30 3RF Rx Instructions: swallow whole; do not crush, chew, dissolve, cut, break fluoxetine 40 mg capsule 40 mg PO DAILY Qty: 30 1RF hydroxyzine HCl 25 mg tablet 25 mg PO TID PRN (Reason: itching) Qty: 30 0RF triamcinolone acetonide 0.5 % ointment 1 applic topical BID 14 Days Qty: 15 0RF Primary Care Provider: Bina Dorsey Referrals: Bina Dorsey MD [Primary Care Provider] - Doctor,Your [Non-Staff] - 3-5 Days (Your part maker) Disposition Disposition: Home, Self Care
[2023-06-10] MEDS: 0.9% Normal Saline (1000mL) 1,000 ML 999 ML IV (10:20)
[2023-06-10] MEDS: Ketorolac 15 MG/ML Vial IV (10:20)
[2023-06-10 10:30] LABS: Absolute Lymphocyte Count 2.01 X10^3/uL (0.83-4.51); Basophil# 0.04 X10^3/uL; Basophil% 0.5 % (0-1); Eosinophil# 0.25 X10^3/uL; Eosinophils% 3.1 % (0-5); Hematocrit 42.7 % (37-47); Hemoglobin 14.2 g/dL (12.0-15.0); Lymphocyte # 2.01 X10^3/ul (0.83-4.51); Lymphocyte % 25.3 % (19-41); Mean Corp Hgb Conc 33.3 g/dL (32-36); Mean Corpuscular Hgb 29.1 pg (27.0-32.0); Mean Corpuscular Volume 87.5 fL (81-99); Mean Platelet Vol. 10.6 fl (6.2-12.0); Monocyte# 0.64 X10^3/uL; Monocyte% 8.1 % (0-10); NRBC Flagged by Analyzer 0 % (0-5); Neutrophil # 4.97 X10^3/uL (2.7-7.7); Neutrophil % 62.5 % (47-70); Platelet Count 234 K/mm3 (150-450); RBC Distribution Width CV 12.7 % (11.6-14.6); RBC Distribution Width SD 40.7 fl (35.1-43.9); Red Blood Count 4.88 M/mm3 (4.2-5.4)
[2023-06-10 10:32] LABS: Internal QC Validated? YES +Cl - CLEAR BKGD; Pregnancy, Urine Negative Negative
[2023-06-10 10:46] LABS: Anion Gap 0 (5-15); BUN 9 mg/dL (7-18); Calcium,Total 8.4 mg/dL (8.5-10.1); Chloride 108 mmol/L (98-107); EST Glomerular Filtration Rate 75 mL/min (>60); Est Glom Filt Rate - Afr Amer 91 mL/min (>60); Estimated Creatinine Clearance 83.23 ml/min; Glucose 121 mg/dL (74-106); Potassium 3.9 mmol/L (3.5-5.1); Sodium Level 135 mmol/L (136-145)
[2023-06-10 11:02] VITALS: BP 126/78; PULSE 64; RESP 14; TEMP 36.6; O2SAT 100
== END 2023-06-10 11:27 | disposition home or self-care (01) ==
PROVIDERS: Emergency Provider Emergency Medicine; PCP Internal Medicine; Visit Provider Emergency Medicine
DX: N92.1 Excessive and frequent menstruation with irregular cycle (principal); K76.9 Liver disease, unspecified; E66.9 Obesity, unspecified
CPT/HCPCS: 80048; 81025; 85025; 96361; 96374; 99283; J7030

== ENCOUNTER → 2023-10-23 | Outpatient (CLI) | payer MEDICAID, SELFPAY ==
--- OUTSIDE RECORDS SUMMARY | 2023-10-23 09:34 | XMS RPT_ITS | CCD ---
Author Name Unknown Address [address] [place] [address] Organization [facility] Care Team Providers Care Housekeeping Supervisor Name Role Phone UNKNOWN, PROVIDER Unavailable Unavailable MICHELET STEIN Unavailable Unavaflower wright Unavailable Primary Care Provider Unavailmaryana Collins MD, Lisa Jean Primary Care Provider Lisa Collins MD Primary Care Provider ISAIAH LONG Attending Unavailable ISAIAH LONG Referring Unavailable ZELALEM GIBBS Referring Unavailable ZELALEM GIBBS Attending Unavailable LISA COLLINS Primary Care Unavailable ZELALEM GIBBS Attending Unavailable BRITTNEY CRONIN Attending Unavailable LISA COLLINS Primary Care Unavailable BRITTNEY CRONIN Referring Unavailable LISA COLLINS Primary Care Unavailable DILIA JONES Referring Unavailable LISA COLLINS Primary Care Unavailable ZELALEM GIBBS Referring Unavailable DILIA JONES Attending Unavailable ZELALEM GIBBS Referring Unavailable SELWYN MARQUES Attending Unavailable SELWYN MARQUES Primary Care Unavailable SELWYN MARQUES Admitting Unavailable MEREDITH AHN MD Referring Unavailable MEREDITH AHN MD Consulting Unavailable PROVIDER, UNKNOWN Consulting Unavailable Medications Completed/Discontinued Medications Medication Drug Class(es) Dates Sig (Normalized) Sig (Original) lamoTRIgine (7 sources) Mood Stabilizer, Anti-epileptic Agent LAMOTRIGINE ORAL Indications: Bipolar depression (HCC) Take by mouth. 0 Active Problems Problem Classification Problem Date Documented Da te Episodic/Chronic Abdominal pain (1 source) Pain in female pelvis; Translations: [Pelvic and perineal pain] Episodic Immunizations and screening for infectious disease (2 sources) Patient encounter status; Translations: [Encounter for immunization] Episodic Menstrual disorders (5 sources) Menometrorrhagia; Translations: [Excessive and frequent menstruation with irregular cycle] Onset: 07-14-2022 Chronic Mood disorders (2 sources) Bipolar disorder, most recent episode depression; Translations: [Bipolar disorder, unspecified] Chronic Other connective tissue disease (1 source) Bilateral heel pain; Translations: [Pain in right foot] Episodic Other connective tissue disease (1 source) Plantar fasciitis; Translations: [Plantar fascial fibromatosis] Episodic Other connective tissue disease (1 source) Pain in right foot; Translations: [Heel pain, bilateral] Onset: 07-26-2022 Episodic Other connective tissue disease (1 source) Pain in left foot; Translations: [Heel pain, bilateral] Onset: 07-26-2022 Episodic Other female genital disorders (1 source) Deep pain on intercourse; Translations: [Deep dyspareunia] Chronic Other liver diseases (1 source) Fatty (change of) liver, not elsewhere classified; Translations: [Fatty (change of) liver, not elsewhere classified] Onset: 05-30-2018 Chronic Other liver diseases (7 sources) Steatosis of liver; Translations: [Fatty (change of) liver, not elsewhere classified] Onset: 05-30-2018 07-18-2022 Chronic Other nutritional; endocrine; and metabolic disorders (8 sources) H/O: diabetes mellitus; Translations: [Personal history of other endocrine, nutritional and metabolic disease] Onset: 07-18-2022 Episodic Other nutritional; endocrine; and metabolic disorders (1 source) Personal history of other endocrine, nutritional and metabolic disease; Translations: [History of diabetes mellitus] Onset: 07-18-2022 Episodic Other screening for suspected conditions (not mental disorders or infectious disease) (1 source) Cancer cervix screening status; Translations: [Encounter for screening for malignant neoplasm of cervix] Episodic Unclassified (2 sources) Fatty (change of) liver, not elsewhere classified / K76.0(ICD-9) Onset: 05-30-2018 Results Test Name Value Interpretation Reference Range Facil ity Vital Signs Date Time Vital Sign Value Performing Clinician Akbar kelly 08-02-2022 14:42-0500 Body height 166.4 cm Zelalem Gibbs MD Work Phone: [facility] 08-02-2022 14:42-0500 Body weight 118.84 kg Zelalem Gibbs MD Work Phone: [facility] 08-02-2022 14:42-0500 Diastolic blood pressure 78 mm[Hg] Zelalem Gibbs MD Work Phone: [facility] 08-02-2022 14:42-0500 Systolic blood pressure 116 mm[Hg] Zelalem Gibbs MD Work Phone: [facility] 07-18-2022 12:57-0500 Body height 166.4 cm Dilia Jones DIRECTOR [facility] Work Phone: [facility] 07-18-2022 12:57-0500 Body weight 118.39 kg Dilia Jones DIRECTOR [facility] Work Phone: [facility] 07-18-2022 12:57-0500 Diastolic blood pressure 80 mm[Hg] Dilia Jones DIRECTOR [facility] Work Phone: [facility] 07-18-2022 12:57-0500 Heart rate 68 /min Dilia Jones DIRECTOR [facility] Work Phone: [facility] 07-18-2022 12:57-0500 Respiratory rate 16 /min Dilia Jones DIRECTOR [facility] Work Phone: [facility] 07-18-2022 12:57-0500 Systolic blood pressure 112 mm[Hg] Dilia Jones DIRECTOR [facility] Work Phone: [facility] 07-14-2022 09:46-0400 Body height 170.2 cm Zelalem Gibbs MD Work Phone: [facility] 07-14-2022 09:46-0400 Body weight 119.3 kg Zelalem Gibbs MD Work Phone: [facility] 07-14-2022 09:46-0400 Diastolic blood pressure 82 mm[Hg] Zelalem Gibbs MD Work Phone: [facility] 07-14-2022 09:46-0400 Systolic blood pressure 112 mm[Hg] Zelalem Gibbs MD Work Phone: [facility] Encounters Encounter Date Encounter Type Care Provider Facility Start: 03-14-2023 End: 07-04-2023 Emergency department patient visit SELWYN MARQUES [facility] Start: 08-02-2022 End: 08-02-2022 ambulatory LISA COLLINS Facility:[facility] Start: 08-02-2022 End: 08-02-2022 Patient encounter procedure Zelalem Gibbs MD Work Phone: OB/Gynecology Procedures Date Procedure Procedure Detail Performing Clinician Start: 07-18-2022 Us pelvic nonobstetr ic real-time image complete Zelalem Gibbs MD Work Phone: Start: 11-07-2019 Follow-up visit Start: 07-30-2019 Follow-up visit Plan of Treatment Date Care Activity Detail Author Start: 08-02-2027 HPV TESTING HPV TESTING [facility] Start: 08-02-2027 PAP TESTING PAP TESTING [facility] Start: 07-18-2023 HEPATITIS C SCREENING HEPATITIS C [facility] Payers Date Payer Category Payer Medicaid [place] [id number] 2022-Present [phone] [address] [place] [address] Medicaid [id number] 2022 Unknown [id number] 1985 Unknown [id number] Social History Date Type Detail Facility Start: 07-14-[address] [facility] Start: 07-14-2022 Tobacco use and exposure Smoke less tobacco non-user [facility] Start: 07-14-2022 End: 07-18-2022 Alcohol intake Current drinker of alcohol (finding) [facility] Start: 1985 Sex Assigned At Not on file [facility] Start: 07-04-2022 End: 08-02-2022 Exposure to SARS-CoV-2 (event) Not sure [facility] Start: 07-18-2022 Alcohol Comment 1 beverage 1 t israel per month [facility] Clinical Notes 07-14-2022 to 09-14-2022 Zelalem Gibbs MD - 08/02/2022 2:41 PM Brandon Paul RN - 07/28/2022 9:21 AM Cristino Cronin - 07/28/2022 9:08 AM Gerber Napier LPN - 07/28/2022 8:29 AM ESTPatient Instructions Note Date & Type Note Facility 09-14-2022 Note HNO ID: [id number] Author: Reny Esparza APRN.CNP Service: ? Author Type: Nurse Practitioner Type: Progress Notes Filed: 09/14/2022 8:42 AM Note Text: Patient did not come in for her initial intake with the provider today. [facility] 08-02-2022 Note HNO ID: [id number] Author: Zelalem Gibbs MD Service: ? Author Type: Physician Type: Progress Notes Filed: 08/02/2022 3:02 PM Note Text: Chelsie is a 36 year old who presents for an annual gynecologic exam without complaints. Heavy menses overall. Pretty regular. Would like to conceive. Menses: cycles every 28-30 days and 4-5 days of flow. 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 No bloating, early satiety, indigestion, or increased flatulence. Bladder: No dysuria, gross hematuria, urinary frequency, urinary urgency, or incontinence. Breast: No breast lumps, nipple d/c, overlying skin changes, redness or skin retraction. Allergies and current medication updated:Yes EXAM: BP 116/78 Ht 5' 5.5 (1.66m) Wt 262 lb (118.8kg) LMP 07/18/2022 BMI 42.92 kg/(m2). GENERAL: pleasant, female in no apparent distress HEENT: Normocephalic, atraumatic, mucus membranes moist, and no lesions NECK: Supple, full range of motion, no adenopathy, and thyroid normal DERMATOLOGY: Normal, without lesions, non-icteric, and non-hirsute BREAST: soft, non-tender, symmetric, no dominant mass, normal nipple-areolar complex, no lymphadenopathy, and no nipple discharge CHEST: Normal inspiratory effort ABDOMEN: soft, non-tender, and no masses PELVIC: external genitalia normal, normal Bartholin's glands, urethra, Joice's glands, no vulvar lesions, no cervical lesions, good vaginal support, physiologic discharge present, normal appearing perineal body and perianal region BIMANUAL: uterus normal size, shape and consistency, no adnexal masses, non-tender, and no tenderness today RECTOVAGINAL: deferred. NEURO: alert and oriented x3,exam grossly non-focal EXTREMITIES: normal ASSESSMENT/PLAN: 1) Health maintenance: Pap done with HPV. Mammogram starting age 40. 2) Contraception: none. Contraceptive options reviewed and information provided. 3) STD screening: Declined STD check. 4) Follow up one year or sooner as needed recommend consult w/ EDGARDO. WOnders if she has endometriosis. Not a good surgical candidate at this time. Only changes protection twice a day w/ menses and they last 4 days, no EMB needed Zelalem Gibbs MD [facility] 08-02-2022 History of Presen t illness Narrative Chelsie is a 36 year old who presents for an annual gynecologic exam without complaints. Heavy menses overall. Pretty regular. Would like to conceive. Menses: cycles every 28-30 days and 4-5 days of flow. 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 No bloating, early satiety, indigestion, or increased flatulence. Bladder: No dysuria, gross hematuria, urinary frequency, urinary urgency, or incontinence. Breast: No breast lumps, nipple d/c, overlying skin changes, redness or skin retraction. Allergies and current medication updated:Yes EXAM: BP 116/78 Ht 5' 5.5 (1.66m) Wt 262 lb (118.8kg) LMP 07/18/2022 BMI 42.92 kg/(m^2). GENERAL: pleasant, female in no apparent distress HEENT: Normocephalic, atraumatic, mucus membranes moist, and no lesions NECK: Supple, full range of motion, no adenopathy, and thyroid normal DERMATOLOGY: Normal, without lesions, non-icteric, and non-hirsute BREAST: soft, non-tender, symmetric, no dominant mass, normal nipple-areolar complex, no lymphadenopathy, and no nipple discharge CHEST: Normal inspiratory effort ABDOMEN: soft, non-tender, and no masses PELVIC: external genitalia normal, normal Bartholin's glands, urethra, Joice's glands, no vulvar lesions, no cervical lesions, good vaginal support, physiologic discharge present, normal appearing perineal body and perianal region BIMANUAL: uterus normal size, shape and consistency, no adnexal masses, non-tender, and no tenderness today RECTOVAGINAL: deferred. NEURO: alert and oriented x3,exam grossly non-focal EXTREMITIES: normal ASSESSMENT/PLAN: 1) Health maintenance: Pap done with HPV. Mammogram starting age 40. 2) Contraception: none. Contraceptive options reviewed and information provided. 3) STD screening: Declined STD check. 4) Follow up one year or sooner as needed recommend consult w/ EDGARDO. WOnders if she has endometriosis. Not a good surgical candidate at this time. Only changes protection twice a day w/ menses and they last 4 days, no EMB needed Zelalem Gibbs MD documented in this encounter [facility] 07-28-2022 Note HNO ID: [id number] Author: Anai Paul RN Service: ? Author Type: Registered Nurse Type: Progress Notes Filed: 07/28/2022 12:17 PM Note Text: Per Dr. Cronin, Chelsie was provided with Powerstep Origional inserts, size 11-11.5 Womens, and instructed/educated in its application, wear, and care. All questions were answered, and patient was able to demonstrate competence with the necessary skills to utilize the above equipment. Anai Paul RN [facility] 07-28-2022 Note HNO ID: [id number] Author: Brittney Cronin Service: ? Author Type: Physician Type: Progress Notes Filed: 07/28/2022 12:17 PM Note Text: Initial Podiatric Office Visit: Chief Complaint: This 36 year old female who presents with chief complaint:plantar heel pain HPI Patient presents to clinic for evaluation of b/l feet She complains of pain to the plantar aspect of both feet Patient states the pain has been present x 1 month Patient states the pain is most severe with any degree of walking, standing on her foot for long periods or after periods of rest Patient has tried new shoes which has not helped. Patient has not tried any medication other than tylenol. She has not tried any inserts. PAIN EVALUATION 07/28/2022 0830 Pain Level: 9 Pain Location: Other: See Comment bilateral feet Description: Sharp;Throbbing Duration Amount of Time: 1 Duration Units: Months Frequency: Continuous Intervention/Comfort measure: Reposition;Relaxation;Medicatio n;Cold Hemoglobin A1C (%) Date Value 07/18/2022 5.6 PCP: Lisa Collins MD PAST MEDICAL HISTORY Diagnosis Date Fatty liver 2019 Current Outpatient Medications Medication Sig LAMOTRIGINE ORAL Take by mouth. meloxicam (MOBIC) 7.5 mg tablet Take 1 tablet by mouth once daily. Take with food. For heel pain No current facility-administered medications for this visit. ALLERGIES No Known Allergies PAST SURGICAL HISTORY Procedure Laterality Date NONE FAMILY HISTORY Problem Relation Age of Onset Blood Clots Mother Bipolar disorder Father Cancer Maternal Grandfather Social History Tobacco Use Smoking status: Never Smokeless tobacco: Never Vaping Use Vaping Use: Former Substance Use Topics Alcohol use: Yes Comment: 1 beverage 1 time per month Drug use: Never REVIEW OF SYSTEMS GENERAL: Negative for Malaise, significant weight loss, fever RESPIRATORY: Negative for cough, wheezing and shortness of breath CARDIOVASCULAR: Negative for chest pain, leg swelling and palpitations GI: Negative for abdominal discomfort, blood in stools or black stools and change in bowel habits : Negative for dysuria, frequency and incontinence MUSCULOSKELETAL: Negative for joint pain or swelling, back pain, and muscle pain. SKIN: Negative for lesions, rash, and itching. HEMATOLOGY/LYMPHOLOGY Negative for prolonged bleeding, bruising easily, and swollen nodes. ENDOCRINE: Negative for cold or heat intolerance, polyuria, polydipsia and goiter. NEURO: negative Physical Exam: Constitutional: Pt is a well developed 36 year old female who is alert, oriented and cooperative Eyes: Following during examination. No redness or drainage. Respiratory: RR normal and nonlabored. Even breathing. No evidence of distress or shortness of breath. Psychology: Patient is engaged during conversation. Normal affect and mood. Does not appear depressed or anxious during encounter. Vascular: Dorsalis pedis and posterior tibial pulses palpable as b/l Capillary Fill time < 5 seconds to digits 1-5 b/l Skin temperature warm to warm proximal to distal b/l Hair growth present to digits Neurological: intact light touch/epicritic sensation - tinel b/l intact protective sensation no significant neurological deficits Dermatological: Nails 1-5 b/l appear normal. Webspaces clean and dry 1-4 b/l. Skin appears well hydrated and supple. good color, texture, turgor. No open lesions present. No callosities present. Musculoskeletal/Orthopaedic: Patient has pain to palpation of b/l medial calcaneal tubercle Foot type is pronated structurally AJ ROM is full with knee extended and flexed 1st MPJ is full when loaded and no pain or crepitus are noted with ROM. MTJ, STJ are full and free of pain and crepitus. +5/5 muscle strength dorsiflexion, plantarflexion, inversion, eversion b/l Radiographs: 3 views b/l foot ordered July 28, 2022: I have personally reviewed and interpreted these XR myself: no acute fracture ASSESSMENT: (M72.2) Plantar fasciitis (primary encounter diagnosis) PLAN: 1. Initial Office Visit - A thorough review of the patient's PMH and Podiatric physical exam was completed. 2. Patient advised to perform stretching excercises, icing, and to make appropriate shoe gear changes to include wearing athletic-type shoes with supportive insoles. No barefoot walking. Patient also given written instructions on how to correctly perform the stretching of the achilles tendon/calf stretches, and the heel spur/plantar fasciitis regimen. 3. Patient advised to seek wide, deep toe box, accomodative, comfortable, lace-up, athletic/walking type footwear that includes motion control characteristics for support and cushion that need to be worn at all times when weight-bearing. Shoes should be tested for torsional stability as well as proper bending at the toebox rather than at the midfoot. Good quality shoes such as, bu (more content not included)... [facility] 07-28-2022 Note HNO ID: [id number] Author: Leanna Napier LPN Service: ? Author Type: LICENSED NURSE Type: Progress Notes Filed: 07/28/2022 12:17 PM Note Text: AMB ROOMING INTAKE FLOWSHEET DATA Pain Pain Level: 9 Pain Location: Other: See Comment (bilateral feet) Description: Sharp, Throbbing Duration Amount of Time: 1 Duration Units: Months Frequency: Continuous Intervention/Comfort measure: Reposition, Relaxation, Medication, Cold Patient presents with: Left Foot - New, Pain Right Foot - Pain, New Leanna Napier LPN [facility] 07-28-2022 History of Presen t illness Narrative Per Dr. Cronin Chelsie was provided with Powerstep Origional inserts, size 11-11.5 Womens, and instructed/educated in its application, wear, and care. All questions were answered, and patient was able to demonstrate competence with the necessary skills to utilize the above equipment. Anai Paul RN Images from the original note were not included. Initial Podiatric Office Visit: Chief Complaint: This 36 year old female who presents with chief complaint:plantar heel pain HPI Patient presents to clinic for evaluation of b/l feet She complains of pain to the plantar aspect of both feet Patient states the pain has been present x 1 month Patient states the pain is most severe with any degree of walking, standing on her foot for long periods or after periods of rest Patient has tried new shoes which has not helped. Patient has not tried any medication other than tylenol. She has not tried any inserts. PAIN EVALUATION 07/28/2022 0830 Pain Level: 9 Pain Location: Other: See Comment bilateral feet Description: Sharp;Throbbing Duration Amount of Time: 1 Duration Units: Months Frequency: Continuous Intervention/Comfort measure: Reposition;Relaxation;Medicatio n;Cold Hemoglobin A1C (%) Date Value 07/18/2022 5.6 PCP: Lisa Collins MD PAST MEDICAL HISTORY Diagnosis Date Fatty liver 2019 Current Outpatient Medications Medication Sig LAMOTRIGINE ORAL Take by mouth. meloxicam (MOBIC) 7.5 mg tablet Take 1 tablet by mouth once daily. Take with food. For heel pain No current facility-administered medications for this visit. ALLERGIES No Known Allergies PAST SURGICAL HISTORY Procedure Laterality Date NONE FAMILY HISTORY Problem Relation Age of Onset Blood Clots Mother Bipolar disorder Father Cancer Maternal Grandfather Social History Tobacco Use Smoking status: Never Smokeless tobacco: Never Vaping Use Vaping Use: Former Substance Use Topics Alcohol use: Yes Comment: 1 beverage 1 time per month Drug use: Never REVIEW OF SYSTEMS GENERAL: Negative for Malaise, significant weight loss, fever RESPIRATORY: Negative for cough, wheezing and shortness of breath CARDIOVASCULAR: Negative for chest pain, leg swelling and palpitations GI: Negative for abdominal discomfort, blood in stools or black stools and change in bowel habits : Negative for dysuria, frequency and incontinence MUSCULOSKELETAL: Negative for joint pain or swelling, back pain, and muscle pain. SKIN: Negative for lesions, rash, and itching. HEMATOLOGY/LYMPHOLOGY Negative for prolonged bleeding, bruising easily, and swollen nodes. ENDOCRINE: Negative for cold or heat intolerance, polyuria, polydipsia and goiter. NEURO: negative Physical Exam: Constitutional: Pt is a well developed 36 year old female who is alert, oriented and cooperative Eyes: Following during examination. No redness or drainage. Respiratory: RR normal and nonlabored. Even breathing. No evidence of distress or shortness of breath. Psychology: Patient is engaged during conversation. Normal affect and mood. Does not appear depressed or anxious during encounter. Vascular: Dorsalis pedis and posterior tibial pulses palpable as b/l Capillary Fill time < 5 seconds to digits 1-5 b/l Skin temperature warm to warm proximal to distal b/l Hair growth present to digits Neurological: intact light touch/epicritic sensation - tinel b/l intact protective sensation no significant neurological deficits Dermatological: Nails 1-5 b/l appear normal. Webspaces clean and dry 1-4 b/l. Skin appears well hydrated and supple. good color, texture, turgor. No open lesions present. No callosities present. Musculoskeletal/Orthopaedic: Patient has pain to palpation of b/l medial calcaneal tubercle Foot type is pronated structurally AJ ROM is full with knee extended and flexed 1st MPJ is full when loaded and no pain or crepitus are noted with ROM. MTJ, STJ are full and free of pain and crepitus. +5/5 muscle strength dorsiflexion, plantarflexion, inversion, eversion b/l Radiographs: 3 views b/l foot ordered July 28, 2022: I have personally reviewed and interpreted these XR myself: no acute fracture ASSESSMENT: (M72.2) Plantar fasciitis (primary encounter diagnosis) PLAN: 1. Initial Office Visit - A thorough review of the patient's PMH and Podiatric physical exam was completed. 2. Patient advised to perform stretching excercises, icing, and to make appropriate shoe gear changes to include wearing athletic-type shoes with supportive insoles. No barefoot walking. Patient also given written instructions on how to correctly perform the stretching of the achilles tendon/calf stretches, and the heel spur/plantar fasciitis regimen. 3. Patient advised to seek wide, deep toe box, accomodative, comfortable, lace-up, athletic/walking type footwear that includes motion control characteristics for support and cushion that need to be worn at all times when weight-bearing. Shoes should be tested for torsional stability as well as proper bending at the toebox rather than at the midfoot. Good quality shoes such as, but not limited to, New Balance or Asics are examples of more proper foot gear. 4. Patient recommended to get powerstep insoles for proper support of the arch in order to alleviate the tension and stress on the plantar fascia associated with normal daily walking. Patient advised that these modalities used in conjunction with stretching and icing are able to alleviate most symptoms from this condition. 5. RTC prn. discussed next step of custom FO, night splint or injection if symptoms do not markedly improve ARACELI Prince DPM Podiatry [address] [place] [facility] [address] Dept: [phone] Dept AMB ROOMING INTAKE FLOWSHEET DATA Pain Pain Level: 9 Pain Location: Other: See Comment (bilateral feet) Description: Sharp, Throbbing Duration Amount of Time: 1 Duration Units: Months Frequency: Continuous Intervention/Comfort measure: Reposition, Relaxation, Medication, Cold Patient presents with: Left Foot - New, Pain Right Foot - Pain, New Leanna Napier LPN documented in this encounter [facility] 07-28-2022 Instructions Brittney Cronin - 07/28/2022 9:14 AM EST Images from the original note were not included. What is Plantar Fasciitis? Plantar fasciitis is the most common cause of heel pain. The pain is caused by inflammation of the plantar fascia. If you strain your plantar fascia, it becomes weak, swollen and irritated (inflamed). The resulting pain may be isolated in the heel or may appear at different points on the bottom of the foot, from time to time; it may occur in one foot or both. Some think that plantar fasciitis pain is caused by irritation of nerves from tissue swelling or inflammation, but it is debatable. Plantar fasciitis is common in middle-aged people; it also occurs in younger people who are on their feet a lot, such as athletes or soldiers. The plantar fascia is a strong band of connective tissue that extends from the base of the toes, along the bottom of the foot, to the bottom of the heel (calcaneous bone); it acts like a bowstring to maintain the arch of the foot. What are heel spurs? The inflammatory reaction of the heel bone may produce spike-like projections of new bone, called heel spurs. The spurs sometimes show on X-rays. They neither cause the initial pain nor do they cause the initial problem. However, later, having to walk on spurs may cause sharp pain. What causes plantar fasciitis? Plantar fasciitis is caused by straining the ligament that supports your arch. Repeated strain can cause tiny tears in the ligament. These lead to pain and swelling. During walking, the plantar fascia experiences tension up to twice the body weight with each step. While this is normal, those who spend much time on their feet, such as nurses, neuro urologist/waiters, and mail carriers, often experience plantar fasciitis. Athletes involved in tennis or other racquet sports, race walking, jogging or running also show a higher incidence of plantar fasciitis than do those participating in other activities. Thus, it's clear that plantar fasciitis is predominantly an overuse injury. In fact, any activity that results in prolonged tension and stress on the plantar fascia may cause plantar fasciitis. It is possible that changes in footwear may play a role in causing plantar fasciitis, no matter what activity is occurring. Those who are overweight are prone to plantar fasciitis. This is true even for sedentary people who get little physical activity. Abnormalities of the foot and ankle joints may predispose some individuals to development of plantar fasciitis (specifically, over pronation of the subtalar joint). Contributing Factors * Flat feet * Toe running, hill running * Sudden weight increase * High-arched, rigid feet * Soft terrain, e.g. running on sand * Obesity * Pronated feet (rolled inward) * Sudden increase in activity * Family tendency * Poor shoe support * Worn out or poorly fitted shoes * Increasing age * Walking, standing or running for long periods of time, especially on hard surfaces. How is the Injury Treated? Rest Your Feet: Limit, or if possible, stop activities that are causing your heel pain. Try to avoid running or walking on hard surfaces, such as concrete. Use pain as your guide. If your foot is too painful, rest it. Ice: Ice the sore area for 30 to 60 minutes, several times a day, to reduce inflammation and relieve pain. Apply a plastic bag of crushed ice (or a bag of frozen peas) over a towel. Ice the sore area for 15 minutes after activity/exercise. Application of heat is not generally recommended, as heat expands the bone and connective tissue, perhaps exerting greater pressure on nerves and thereby increasing pain. If heat is used, follow it with ice. Medication: If your condition developed recently, anti-inflammatory/analgesic medication, combined with heel pads (see below) may be all that is necessary to relieve pain and to reduce inflammation. If no pain relief has occurred after 2-3 weeks, however, your doctor may inject either cortisone or local anesthetic directly into the tender area. Exercises: Do simple exercises, such as calf stretches and towel stretches (see below) several times a day, especially when you first get up in the morning. These can help your ligament become more flexible and strengthen the muscles that support your arch. Shoes: Poorly fitting shoes can cause plantar fasciitis. The best type of shoe to wear is a good walking or running shoe with good shock absorption and excellent arch support. You should choose the one that fits the best. [place] with your athletic shoes to find a pair that is comfortable and causes fewer symptoms. Put your shoes on as soon as you get out of bed; going barefoot or wearing slippers may make your pain worse. Good brands include (but are not limited to): New Balance, Asics, Saucony, SAS and Merrel s. Taping: Your doctor may tape your foot to maintain the arch. This takes some of the tension off the plantar fascia. Weight Loss: If your weight is putting extra stress on your feet, your doctor may encourage you to try a weight-loss program. Orthotics: An orthotic insole is a molded piece of rubber, plastic, or other material that you insert into your shoe. It corrects the alignment of your foot and cushions your foot from excessive pounding. These may be prescription or non-prescription. Prescription orthotics are custom-fitted and may fit better and control pain better, but are very expensive. Night Splints: A night splint holds the foot with the toes pointed up and the ankle at a 90-degree angle. This position applies a constant, gentle stretch to the plantar fascia. Corticosteroid Shots: Steroids may be injected into the tender area to reduce inflammation. REHAB Exercises to stretch the plantar fascia, the calf muscles, and the Achilles tendon. Tightness of the muscles of the calves may contribute to plantar fasciitis, so stretching the calf muscles is important to rehabilitation, as is stretching of the plantar fascia itself. Plantar fascial stretches Assisted Dorsiflexion/Plantar Fascia Stretch: Sit on the floor or ground, barefoot, with both legs outstretched. Use a towel or elastic band and wrap it around the ball (and not the toes) of the affected foot. Use the towel or elastic band to provide resistance to upward movement of the forefoot. Pull foot upward (toward your body) with the help of the elastic band or towel, and then return to the starting position. Ten repetitions are recommended. Perform the sequence at least three times a day. Alternate Plantar Fascia Stretch: Sit upright in a chair, barefoot. Place the ankle of the affected foot on your opposite knee. Using the same hand as the affected foot, reach across and grab the toes. Flex the ankle toward and pull the toes toward the matthews. To test the stretch, place the thumb of your hand on the bottom of the foot. You should be able to feel the cord-like plantar fascia, running the length of the foot. Hold the stretch for a count of 10, then relax. Repeat 10 times. Do the sequence at least three times a day. Achilles/Calf Stretches Strengthening the muscles of the calves may contribute to successful rehabilitation of plantar fasciitis, as well as prevent reoccurrence. The exercises below will help strengthen the calf muscles. Calf and Achilles Tendon Stretch (Gastrocnemius Stretch): Face a wall, standing an arm's length away. Place one foot back. Place both hands on the wall. Bend the elbows and knee of your forward leg, keeping the heel of the backward foot on the floor and keeping your body straight (aligned), until your forehead nearly touches the wall, or until significant stretch is felt in the muscles of the calf of the backward leg. Hold this position for 10 to 15 seconds. Extend elbows (straighten your arms and stand upright again) and maintain this position for 10 seconds. Repeat this cycle 15 to 20 times. Switch legs and repeat the exercise. Powerstep Original Full length. Can purchase at [employer] here in [place], [employer] in [place] or [place]. Also can find in [place] in [facility]. Powersteps can also be purchased online, starting around $25.00 If you have a metatarsal or dancer pad for your feet apply the pad directly to the insole so you can interchange between your shoes. Find a shoe with a removable insole and take this out and replace with your powerstep insole. Always bring powersteps with you when shopping for shoes so that you can make sure that everything fits well together documented in this encounter [facility] 07-26-2022 Note HNO ID: [id number] Author: RT Zoran(R) Service: Radiology Author Type: Technologist Type: Progress Notes Filed: 07/26/2022 5:06 PM Note Text: Radiology Service Progress Note PATIENT NAME: Chelsie Chiu DATE OF SERVICE: July 26, 2022 TIME: 4:54 PM PATIENT IDENTITY VERIFICATION COMPLETED USING TWO (2) IDENTIFIERS: Name and Date of confirmed by patient verbally. FALL SCREENING: Has the patient had 2 falls in the last year or 1 fall with injury or currently using an Ambulatory Assistive Device (Walker, Cane, Wheelchair, Crutches, etc.)? No PATIENT GENDER DATA: Female. status: : No status: NO. PATIENT RELEVANT IMPLANT DATA REVIEWED: Yes RADIOLOGY DEPARTMENT: General X-ray: Exam(s) Completed: Lower Extremity X-Ray(s): Foot, Bilateral and Wt. Bearing PERIPHERAL IV DATA: Not applicable SIGNED BY: RT Zoran(R) July 26, 2022 4:54 PM [facility] 07-26-2022 Note HNO ID: [id number] Author: ALMA Bravo Service: ? Author Type: Smeller Type: Progress Notes Filed: 07/26/2022 1:45 PM Note Text: BEHAVIORAL HEALTH SOCIAL WORK QUICK NOTE Provider Action/FYI Chart review completed Needing appointment scheduled with Reny Esparza Patient identified for [facility] from: PCP Reason for referral: Resources Behavioral Health Resources: Psychiatry med management [facility] encounter type: Chart Review Attempts to Outreach: 1 attempt Referral made: Psychiatry - Internal Psychiatry-Internal referral type: Medication Management Final Disposition: Resources given Patient Discharged?: Yes Patient reported that caregiver was able to meet their needs today?: N/A Pt identified by name and . [facility] consult received. Patient interested in seeing psychiatry at [facility], specifically Renyflower Esparza CNP. Jenny Terrazas LPN contacted patient to assist with patient scheduling. No needs further from this SW at this time. ALMA Bravo, MONIKA [facility] 07-26-2022 History of Presen t illness Narrative BEHAVIORAL HEALTH SOCIAL WORK QUICK NOTE Provider Action/FYI Chart review completed Needing appointment scheduled with Reny Narayanan Patient identified for [facility] from: PCP Reason for referral: Resources Behavioral Health Resources: Psychiatry med management [facility] encounter type: Chart Review Attempts to Outreach: 1 attempt Referral made: Psychiatry - Internal Psychiatry-Internal referral type: Medication Management Final Disposition: Resources given Patient Discharged?: Yes Patient reported that caregiver was able to meet their needs today?: N/A Pt identified by name and . [facility] consult received. Patient interested in seeing psychiatry at [facility], specifically Renyflower Esparza CNP. Jenny Terrazas LPN contacted patient to assist with patient scheduling. No needs further from this SW at this time. ALMA Bravo, MONIKA documented in this encounter [facility] 07-26-2022 Miscellaneous Notes Message to call office to schedule [employer] appointment with Reny. Please change consult to BEHAVIORAL HEALTH instead of psychiatry and route back to me. PT has consult placed for Psychiatry, please advise and assist. Tianna QUIROZ documented in this encounter [facility] 07-18-2022 Note HNO ID: [id number] Author: Dilia Jones APRN.DRUM PULLER Service: ? Author Type: Nurse Specialist Type: Progress Notes Filed: 07/18/2022 1:43 PM Note Text: SUBJECTIVE: HEPATITIS B(1 of 3 - 3-dose series) Never done COVID-19 VACCINE(1) Never done DTAP,TDAP,TD(1 - Tdap) Never done PAP TESTING Never done HPV TESTING Never done DEPRESSION ASSESSMENT Never done HPI Chelsie Chiu is a 36 year old female. PMH significant for ACTIVE PROBLEM LIST Fatty Liver History of Diabetes Mellitus Presents today to establish care with Lisa Collins MD Previous PCP: Arnoldomike ACKERMAN Last seen: 2 mos ago Labwork: ER/Hospitalization: no Outside records: no She notes feeling unwell at work lately. States was diagnosed in [place] by a Dr Lorenzana 2 years ago with DM. Tried medication but it didn't work . so stopped taking it. Reports a home BS of 112. States she is taking two depression medications, not sure of what. Has been followed by psychiatry in the past Notes bilateral heel pain after work, has been wearing skechers shoes. Has appt with podiatry. Review of Systems Musculoskeletal: Positive for arthralgias. Psychiatric/Behavioral: Positive for dysphoric mood. Objective BP 112/80 Pulse 68 Resp 16 Ht 166.4 cm (5' 5.5 ) Wt 118.4 kg (261 lb) LMP 06/30/2022 (Within Days) BMI 42.77 kg/m? Physical Exam Vitals and nursing note reviewed. Constitutional: Appearance: Normal appearance. HENT: Head: Normocephalic and atraumatic. Eyes: Conjunctiva/sclera: Conjunctivae normal. Cardiovascular: Rate and Rhythm: Normal rate and regular rhythm. Heart sounds: Normal heart sounds. Pulmonary: Effort: Pulmonary effort is normal. Breath sounds: Normal breath sounds. Abdominal: General: Bowel sounds are normal. Palpations: Abdomen is soft. Musculoskeletal: Right lower leg: No edema. Left lower leg: No edema. Skin: General: Skin is warm and dry. Neurological: Mental Status: She is alert. Mental status is at baseline. ALLERGIES No Known Allergies LAMOTRIGINE ORAL Take by mouth. PAST MEDICAL HISTORY Diagnosis Date Fatty liver 2019 PAST SURGICAL HISTORY Procedure Laterality Date NONE Social History Tobacco Use Smoking status: Never Smokeless tobacco: Never Vaping Use Vaping Use: Former Substance Use Topics Alcohol use: Yes Comment: 1 beverage 1 time per month Drug use: Never FAMILY HISTORY Problem Relation Age of Onset Blood Clots Mother Bipolar disorder Father Cancer Maternal Grandfather ASSESSMENT/PLAN: 1. Routine medical exam - ICD9: V70.0, ICD10: Z00.00 (primary diagnosis) - Endorse healthy diet and regular exercise - Endors calcium intake with supplements or by diet of 1000 mg/day for under 50 - COMP METABOLIC PANEL - CBC + DIFF 2. History of diabetes mellitus - ICD9: V12.29, ICD10: Z86.39 Not currently treating. - COMP METABOLIC PANEL - HGB A1C 3. Bipolar depression (HCC) - ICD9: 296.50, ICD10: F31.9 She reports seeing psychiatry in the past and taking 2 medications for depression, is not sure what she is taking and will call back with the medications when she can check her pill bottles - LAMOTRIGINE ORAL - CONSULT TO PSYCHIATRY 4. Encounter for immunization - ICD9: V03.89, ICD10: Z23 - HEPLISAV B (HEPATITIS B, ADJUVANT, ADULT) - Endologix-Taggo COVID-19 BIVALENT BOOSTER VACCINE, AGE 12+ YR - TDAP VACCINE AGE 7+ IM 5. Heel pain, bilateral - ICD9: 729.5, ICD10: M79.671, M79.672 Endorse supportive shoe wear Provided with home stretches to try. Meloxicam as needed Keep podiatry appt - MELOXICAM 7.5 MG TABLET Advised: Get you pill bottles and call us back with your prescriptions. Avoid sugary drinks, foods and sweets 3 mo follow up Dilia Jones APRN.DRUM PULLER 6 mo follow up MD Dilia Mcclellan APRN.DRUM PULLER Medical Decision Making: Problems: Moderate: 2+ stable chronic illnesses Data: Unique test(s) ordered: 2 Risk: Moderate: Drug management Medical Decision Making Level: 4 - Moderate [facility] 07-18-2022 Instructions Dilia Jones APRN.CNS - 07/18/2022 1:27 PM EST Get you pill bottles and call us back with your prescriptions. Avoid sugary drinks, foods and sweets documented in this encounter [facility] 07-18-2022 History of Presen t illness Narrative SUBJECTIVE: HEPATITIS B(1 of 3 - 3-dose series) Never done COVID-19 VACCINE(1) Never done DTAP,TDAP,TD(1 - Tdap) Never done PAP TESTING Never done HPV TESTING Never done DEPRESSION ASSESSMENT Never done HPI Chelsie Chiu is a 36 year old female. PMH significant for ACTIVE PROBLEM LIST Fatty Liver History of Diabetes Mellitus Presents today to establish care with Lisa Collins MD Previous PCP: Arnoldo ACKERMAN Last seen: 2 mos ago Labwork: ER/Hospitalization: no Outside records: no She notes feeling unwell at work lately. States was diagnosed in [place] by a Dr Lorenzana 2 years ago with DM. Tried medication but it didn't work . so stopped taking it. Reports a home BS of 112. States she is taking two depression medications, not sure of what. Has been followed by psychiatry in the past Notes bilateral heel pain after work, has been wearing skechers shoes. Has appt with podiatry. Review of Systems Musculoskeletal: Positive for arthralgias. Psychiatric/Behavioral: Positive for dysphoric mood. Objective BP 112/80 Pulse 68 Resp 16 Ht 166.4 cm (5' 5.5 ) Wt 118.4 kg (261 lb) LMP 06/30/2022 (Within Days) BMI 42.77 kg/m Physical Exam Vitals and nursing note reviewed. Constitutional: Appearance: Normal appearance. HENT: Head: Normocephalic and atraumatic. Eyes: Conjunctiva/sclera: Conjunctivae normal. Cardiovascular: Rate and Rhythm: Normal rate and regular rhythm. Heart sounds: Normal heart sounds. Pulmonary: Effort: Pulmonary effort is normal. Breath sounds: Normal breath sounds. Abdominal: General: Bowel sounds are normal. Palpations: Abdomen is soft. Musculoskeletal: Right lower leg: No edema. Left lower leg: No edema. Skin: General: Skin is warm and dry. Neurological: Mental Status: She is alert. Mental status is at baseline. ALLERGIES No Known Allergies LAMOTRIGINE ORAL Take by mouth. PAST MEDICAL HISTORY Diagnosis Date Fatty liver 2019 PAST SURGICAL HISTORY Procedure Laterality Date NONE Social History Tobacco Use Smoking status: Never Smokeless tobacco: Never Vaping Use Vaping Use: Former Substance Use Topics Alcohol use: Yes Comment: 1 beverage 1 time per month Drug use: Never FAMILY HISTORY Problem Relation Age of Onset Blood Clots Mother Bipolar disorder Father Cancer Maternal Grandfather ASSESSMENT/PLAN: 1. Routine medical exam - ICD9: V70.0, ICD10: Z00.00 (primary diagnosis) - Endorse healthy diet and regular exercise - Endors calcium intake with supplements or by diet of 1000 mg/day for under 50 - COMP METABOLIC PANEL - CBC + DIFF 2. History of diabetes mellitus - ICD9: V12.29, ICD10: Z86.39 Not currently treating. - COMP METABOLIC PANEL - HGB A1C 3. Bipolar depression (HCC) - ICD9: 296.50, ICD10: F31.9 She reports seeing psychiatry in the past and taking 2 medications for depression, is not sure what she is taking and will call back with the medications when she can check her pill bottles - LAMOTRIGINE ORAL - CONSULT TO PSYCHIATRY 4. Encounter for immunization - ICD9: V03.89, ICD10: Z23 - HEPLISAV B (HEPATITIS B, ADJUVANT, ADULT) - Endologix-Taggo COVID-19 BIVALENT BOOSTER VACCINE, AGE 12+ YR - TDAP VACCINE AGE 7+ IM 5. Heel pain, bilateral - ICD9: 729.5, ICD10: M79.671, M79.672 Endorse supportive shoe wear Provided with home stretches to try. Meloxicam as needed Keep podiatry appt - MELOXICAM 7.5 MG TABLET Advised: Get you pill bottles and call us back with your prescriptions. Avoid sugary drinks, foods and sweets 3 mo follow up Dilia Jones APRN.DRUM PULLER 6 mo follow up MD Dilia Mcclellan APRN.CNS Medical Decision Making: Problems: Moderate: 2+ stable chronic illnesses Data: Unique test(s) ordered: 2 Risk: Moderate: Drug management Medical Decision Making Level: 4 - Moderate documented in this encounter [facility] 07-14-2022 Note HNO ID: [id number] Author: Zelalem Gibbs MD Service: ? Author Type: Physician Type: Progress Notes Filed: 07/14/2022 1:47 PM Note Text: HPI: Chelsie Chiu is a 36 year old female who presents for problem visit for abdominal cramping for 2 month(s). The pain is located across her lower abdomen. The patient describes the pain as sharp. She gets the cramps about 3 days before her period. She noted that intercourse is painful. She experiences the abdominal pain and vaginal pain with penetrative intercourse. She takes OTC medication for pain which helps.The patients cycle is irregular. It occurs about every 14-28 days. Flow is moderate with clots for 3-4 days. She changes her pads twice daily and doesn't have to get up in the night to change her pads. She reports hair loss and acne. She denies changes to her skin, nails, and hirsutism. The patient has never been on control. She is currently trying to get . Current partner 3 years, has intercourse most nights. He has fathered one that did not end in a live . He had a trauma in the past and was in a coma for a while. Doesn't know if this affected fertility. No family h/o genetic issues she is aware of. She has had one in the past and didn't try after that. She tried 3 months in the past to conceive w/ her son. Over past 2 years menses shorter but cycle regularity not changed. cycles vary. Some cramping w/ menses. Takes midol for this once or twice a day w/ some relief. Denies skin changes, some hair thining on scalp. No changes in acne, some breakouts around menses, no hirsuitism or galactorrhes. Not consistently hot or cold. Gained wt over past year. Doesn't know how much. Doesn't exercise regularly. 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 No current facility-administered medications for this visit. Allergies As of Date: 07/14/2022 (No Known Allergies) Fully Assessed 07/14/2022 REVIEW OF SYSTEMS Abdomen: notes constipation before her period that resolves after her menstrual cycle; denies nausea, vomiting, diarrhea Bladder: No dysuria, gross hematuria, urinary frequency, urinary urgency, or incontinence. Breast: No breast lumps, nipple d/c, overlying skin changes, redness or skin retraction. Expanded ROS: SAFETY ASSOCIATE: Negative for abnormal vaginal bleeding, abnormal vaginal discharge SKIN: Negative for lesions, rash, and itching ENDOCRINE: Positive for cold intolerance: , polyuria: , See HPI Allergies and current medication updated:Yes EXAM: BP 112/82 Ht 5' 7 (1.70m) Wt 263 lb (119.3kg) LMP 06/30/2022 BMI 41.18 kg/(m2). GENERAL: pleasant, female in no apparent distress HEENT: Normocephalic, atraumatic, mucus membranes moist, and no lesions NECK: Supple, full range of motion, no adenopathy, and thyroid normal DERMATOLOGY: Normal, without lesions, non-icteric, and non-hirsute ASSESSMENT AND PLAN: irregular menses, dyspareunia, desires to conceive Labs ordered pelvic US return for annual and discuss results offered consult w/ EDGARDO. D/w her infertility eval would consist of HSG and semen analysis and cost associated with these. D/ whe her wt loss, healthy lifestyle. EMB recommended Medical Decision Making: Medical Decision Making Level: 1 - N/A Zelalem Gibbs MD [facility] 07-14-2022 History of Presen t illness Narrative HPI: Chelsie Chiu is a 36 year old female who presents for problem visit for abdominal cramping for 2 month(s). The pain is located across her lower abdomen. The patient describes the pain as sharp. She gets the cramps about 3 days before her period. She noted that intercourse is painful. She experiences the abdominal pain and vaginal pain with penetrative intercourse. She takes OTC medication for pain which helps.The patients cycle is irregular. It occurs about every 14-28 days. Flow is moderate with clots for 3-4 days. She changes her pads twice daily and doesn't have to get up in the night to change her pads. She reports hair loss and acne. She denies changes to her skin, nails, and hirsutism. The patient has never been on control. She is currently trying to get . Current partner 3 years, has intercourse most nights. He has fathered one that did not end in a live . He had a trauma in the past and was in a coma for a while. Doesn't know if this affected fertility. No family h/o genetic issues she is aware of. She has had one in the past and didn't try after that. She tried 3 months in the past to conceive w/ her son. Over past 2 years menses shorter but cycle regularity not changed. cycles vary. Some cramping w/ menses. Takes midol for this once or twice a day w/ some relief. Denies skin changes, some hair thining on scalp. No changes in acne, some breakouts around menses, no hirsuitism or galactorrhes. Not consistently hot or cold. Gained wt over past year. Doesn't know how much. Doesn't exercise regularly. 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 No current facility-administered medications for this visit. Allergies As of Date: 07/14/2022 (No Known Allergies) Fully Assessed 07/14/2022 REVIEW OF SYSTEMS Abdomen: notes constipation before her period that resolves after her menstrual cycle; denies nausea, vomiting, diarrhea Bladder: No dysuria, gross hematuria, urinary frequency, urinary urgency, or incontinence. Breast: No breast lumps, nipple d/c, overlying skin changes, redness or skin retraction. Expanded ROS: SAFETY ASSOCIATE: Negative for abnormal vaginal bleeding, abnormal vaginal discharge SKIN: Negative for lesions, rash, and itching ENDOCRINE: Positive for cold intolerance: , polyuria: , See HPI Allergies and current medication updated:Yes EXAM: BP 112/82 Ht 5' 7 (1.70m) Wt 263 lb (119.3kg) LMP 06/30/2022 BMI 41.18 kg/(m^2). GENERAL: pleasant, female in no apparent distress HEENT: Normocephalic, atraumatic, mucus membranes moist, and no lesions NECK: Supple, full range of motion, no adenopathy, and thyroid normal DERMATOLOGY: Normal, without lesions, non-icteric, and non-hirsute ASSESSMENT AND PLAN: irregular menses, dyspareunia, desires to conceive Labs ordered pelvic US return for annual and discuss results offered consult w/ EDGARDO. D/w her infertility eval would consist of HSG and semen analysis and cost associated with these. D/ whe her wt loss, healthy lifestyle. EMB recommended Medical Decision Making: Medical Decision Making Level: 1 - N/A Zelalem Gibbs MD documented [facility] encounter [facility] Diagnosis Routine medical exam- Primary Routine general medical examination at a health care facility History of diabetes mellitus Personal history of other endocrine, metabolic, and immunity disorders Bipolar depression (HCC) Bipolar I disorder, most recent episode (or current) depressed, unspecified Encounter for immunization Need for other specified prophylactic vaccination against single bacterial disease Heel pain, bilateral [facility] [place] [facility] Diagnosis Pelvic pain in female- Primary Unspecified symptom associated with female genital organs [facility] [place] [facility]* Diagnosis Bipolar affective disorder, remission status unspecified (HCC)- Primary [facility] [place] [facility]* Diagnosis Plantar fasciitis- Primary Plantar fascial fibromatosis [facility] [place] [facility] Diagnosis Encounter for gynecological examination (general) (routine) without abnormal findings- Primary Screening for cervical cancer Screening for malignant neoplasm of the cervix Encounter for screening for human papillomavirus (HPV) Special screening examination for human papillomavirus (HPV) Menorrhagia with regular cycle Excessive or frequent menstruation [facility] Diagnosis Menorrhagia with irregular cycle Excessive or frequent menstruation [facility] Diagnostic Procedure Only (Routine) - Authorized Specialty Diagnoses / Procedures Referred By Contac t Referred To Contact [facility] Diagnoses Menorrhagia with irregular cycle Procedures PELVIC US WHI US PELVIC NONOBSTETRIC REAL-TIME IMAGE COMPLETE Zelalem Gibbs MD [address] [place] [address] [facility] [address] [place] [address] Referral ID Status Reason Start Date Expiration Date Visits Requested Visits Authorized [id number] Authorized Auto-Generat ed Referral 07/14/2022 07/14/2023 1 1 [facility] for visit Narrative* Diagnostic Procedure Only (Routine) - Closed Specialty Diagnoses / Procedures Referred By Contac t Referred To Contact [facility] Diagnoses Menorrhagia with irregular cycle Procedures PELVIC US WHI US PELVIC NONOBSTETRIC REAL-TIME IMAGE COMPLETE Zelalem Gibbs MD [address] [place] [address] [facility] [address] [place] [address] Referral ID Status Reason Start Date Expiration Date V isits Requested Visits Authorized [id number] Closed Auto-Generate d Referral 07/14/2022 07/14/2023 1 1 [facility] Summary Purpose Family History No Family History Records FoundNo Family History Records FoundNo Family History Records FoundNo Family History Records FoundNo Family History Records FoundNo Family History Records FoundNo Family History Records FoundNo Family History Records Found Advance Directives No Advanced Directives Records FoundNo Advanced Directives Records FoundNo Advanced Directives Records FoundNo Advanced Directives Records FoundNo Advanced Directives Records FoundNo Advanced Directives Records FoundNo Advanced Directives Records FoundNo Advanced Directives Records Found Reason for Referral Specialty Diagnoses / Procedures Referred By Contac t Referred To Contact Diagnoses Bipolar depression (HCC) Procedures CONSULT TO PSYCHIATRY OFFICE/OUTPATIENT [facility] 60-74 MINUTES Dilia Jones, DIRECTOR COMMUNITY [facility] NURSING.[employer] [address] [place] [address] Referral ID Status Reason Start Date Expiration Date Visits Requested Visits Authorized [id number] Pending Review PCP Requested Referral 07/18/2022 07/18/2023 1 1 Additional Source Comments INFORMATION SOURCE (unrecogn ized section and content) DATE CREATED AUTHOR AUTHOR'S ORGANIZ ATION 03/23/2019 [facility] DATE CREATED AUTHOR AUTHOR'S ORGANIZ ATION 06/19/2019 [facility] DATE CREATED AUTHOR AUTHOR'S ORGANIZ ATION 10/09/2019 [facility] DATE CREATED AUTHOR AUTHOR'S ORGANIZ ATION 11/07/2019 [facility] DATE CREATED AUTHOR AUTHOR'S ORGANIZ ATION 09/14/2022 [facility] DATE CREATED AUTHOR AUTHOR'S ORGANIZ ATION 03/13/2023 [facility] DATE CREATED AUTHOR AUTHOR'S ORGANIZ ATION 03/14/2023 [facility] Source Comments (unrecognize d section and content) In the event this informatio n is protected by the Federal Confidentiality of Alcohol and Drug Abuse Patient Records regulations: The Federal rules restrict any use of the information to criminally investigate or prosecute any alcohol or drug abuse patient.[facility] the event this information is protected by the Federal Confidentiality of Alcohol and Drug Abuse Patient Records regulations: The Federal rules restrict any use of the information to criminally investigate or prosecute any alcohol or drug abuse patient.[facility] the event this information is protected by the Federal Confidentiality of Alcohol and Drug Abuse Patient Records regulations: The Federal rules restrict any use of the information to criminally investigate or prosecute any alcohol or drug abuse patient.[facility] the event this information is protected by the Federal Confidentiality of Alcohol and Drug Abuse Patient Records regulations: The Federal rules restrict any use of the information to criminally investigate or prosecute any alcohol or drug abuse patient.[facility] the event this information is protected by the Federal Confidentiality of Alcohol and Drug Abuse Patient Records regulations: The Federal rules restrict any use of the information to criminally investigate or prosecute any alcohol or drug abuse patient.[facility] the event this information is protected by the Federal Confidentiality of Alcohol and Drug Abuse Patient Records regulations: The Federal rules restrict any use of the information to criminally investigate or prosecute any alcohol or drug abuse patient.[facility] the event this information is protected by the Federal Confidentiality of Alcohol and Drug Abuse Patient Records regulations: The Federal rules restrict any use of the information to criminally investigate or prosecute any alcohol or drug abuse patient.[facility] the event this information is protected by the Federal Confidentiality of Alcohol and Drug Abuse Patient Records regulations: The Federal rules restrict any use of the information to criminally investigate or prosecute any alcohol or drug abuse patient.[facility] Reason for Visit (unrecogniz ed section and content) Reason Comments Establish Care Reason Comments Pelvic Pain Reason Comments Consult Reason Comments Behavioral Health Social Work Reason Comments New Pain Reason Comments Yearly Exam Follow up- ultrasoun d and labs done Care Teams (unrecognized sec tion and content) Housekeeping Supervisor Relationship Specialty Start Date End Date Lisa Collins MD [address] [place] [address] PCP - General Internal Medicine 07/18/22 Housekeeping Supervisor Relationship Specialty Start Date End Date Lisa Collins MD [address], [place] [phone] PCP - General Internal Medicine 07/18/22 Housekeeping Supervisor Relationship Specialty Start Date End Date Lisa Collins MD [facility], [place] [phone] PCP - General Internal Medicine 07/18/22 Housekeeping Supervisor Relationship Specialty Start Date End Date Lisa Collins MD [address], [place] [id number] PCP - General Internal Medicine 07/18/22 Housekeeping Supervisor Relationship Specialty Start Date End Date Lisa Collins MD [address], [place] [phone] PCP - General Internal Medicine 07/18/22 Housekeeping Supervisor Relationship Specialty Start Date End Date Lisa Collins MD [address], [place] [phone] PCP - General Internal Medicine 07/18/22 FOR RECORDS PERTAINING TO PATIENTS WHO ARE OR HAVE BEEN ENROLLED IN A CHEMICAL DEPENDENCY/SUBSTANCEABUSE PROGRAM, SOME INFORMATION MAY BE OMITTED. This clinical summary was aggregated from multiple sources. Caution should be exercised in using it in the provision of clinical care. This summary normalizes information from multiple sources, and as a consequence, information in this document may materially change the coding, format and clinical context of patient data. In addition, data may be omitted in some cases. CLINICAL DECISIONS SHOULD BE BASED ON THE PRIMARY CLINICAL RECORDS. [facility] [employer] [facility]. provides no warranty or guarantee of the accuracy or completeness of information in this document.
[2023-10-23 10:45] LABS: Absolute Lymphocyte Count 1.97 X10^3/uL (0.83-4.51); Absolute Neutrophil Count 4.4 X10^3/uL (2.0-7.7); Basophil# 0.05 X10^3/uL; Basophil% 0.7 % (0-1); Eosinophil# 0.24 X10^3/uL; Eosinophils% 3.3 % (0-5); Hemoglobin 13.7 g/dL (12.0-15.0); Lymphocyte # 1.97 X10^3/ul (0.83-4.51); Lymphocyte % 26.9 % (19-41); Mean Corp Hgb Conc 32.6 g/dL (32-36); Mean Corpuscular Hgb 28.5 pg (27.0-32.0); Mean Corpuscular Volume 87.3 fL (81-99); Mean Platelet Vol. 11.4 fl (6.2-12.0); Monocyte# 0.62 X10^3/uL; Monocyte% 8.5 % (0-10); NRBC Flagged by Analyzer 0 % (0-5); Neutrophil # 4.35 X10^3/uL (2.7-7.7); Neutrophil % 59.5 % (47-70); Platelet Count 215 K/mm3 (150-450); RBC Distribution Width CV 12.4 % (11.6-14.6); RBC Distribution Width SD 39.3 fl (35.1-43.9); Red Blood Count 4.81 M/mm3 (4.2-5.4); White Blood Count 7.3 K/mm3 (4.4-11.0)
[2023-10-23 11:09] LABS: Vitamin D,25 Hydroxy 26.2 ng/mL
[2023-10-23 12:42] LABS: ALB/GLOB Ratio 1.1 RATIO (0.9-2.4); AST(SGOT) 21 U/L (15-37); Alanine Aminotransfer ALT/SGPT 49 U/L (13-56); Albumin, Serum 3.6 g/dL (3.2-5.0); Alkaline Phosphatase 77 U/L (45-117); Anion Gap 6 (5-15); BUN 12 mg/dL (7-18); BUN/Creat Ratio 14.5 RATIO (10-20); Calcium,Total 8.8 mg/dL (8.5-10.1); Chloride 109 mmol/L (98-107); Creatinine, Serum 0.83 mg/dL (0.55-1.02); EST Glomerular Filtration Rate 82 mL/min (>60); Est Glom Filt Rate - Afr Amer 99 mL/min (>60); Globulin 3.3 g/dL (2.2-4.2); Glucose 151 mg/dL (74-106); Potassium 4.1 mmol/L (3.5-5.1); Protein, Total 6.9 g/dL (6.4-8.2); Sodium Level 141 mmol/L (136-145)
[2023-10-23 14:43] LABS: Hemoglobin A1c 6.5 % (3.8-5.6)
== END | disposition home or self-care (01) ==
LOC: BIMLAB 09:12
PROVIDERS: PCP Internal Medicine; Referring Provider Internal Medicine; Visit Provider Internal Medicine
DX: F32.1 Major depressive disorder, single episode, moderate (principal); E55.9 Vitamin D deficiency, unspecified; R73.03 Prediabetes
CPT/HCPCS: 36415; 80053; 82306; 83036; 85025